=== PATIENT | male | born 1950 | race Caucasian/White ===

== ENCOUNTER 2019-05-04 02:12 | Inpatient (IN) ==
[2019-05-04] MEDS ORDERED: Isovue-370 500 ML BOTTLE IVP ONE (02:27)
[2019-05-04] MEDS ORDERED: Morphine Sulfate 2 MG/ML SYRINGE IVP ONE ×2 (02:28→04:09)
[2019-05-04 02:44] LABS: Basophils % 0.2 %; Eosinophils % 0.1 %; Hematocrit 45.8 % (37.5-50.1); Hemoglobin 15.5 g/dL (12.9-16.9); Immature Granulocytes % 0.4 % (0-4); Lymphocytes # 0.5 K/mcL (0.6-4.6); Lymphocytes % 2.3 %; Mean Corpuscular HGB Conc 33.8 g/dL (31.6-35.5); Mean Corpuscular Hemoglobin 29.9 pg (28.0-33.3); Mean Corpuscular Volume 88.2 fL (83.0-100.0); Mean Platelet Volume 10.7 fL (9.4-12.4); Monocytes # 1.7 K/mcL (0.0-1.3); Monocytes % 7.9 %; Neutrophils # 18.8 K/mcL (1.6-8.9); Platelet Count 251 K/mcL (140-400); Red Blood Count 5.19 M/mcL (4.19-5.50); Red Cell Distribution Width 13.6 % (11.5-14.5); Segmented Neutrophils % 89.1 %
[2019-05-04 02:58] LABS: Bilirubin,Urine Small (Negative); Blood,Urine Large (Negative); Clarity,Urine Cloudy (Clear); Color,Urine Dark Yellow (Yellow); Glucose,Urine (UA) Normal (Normal); Ketones,Urine 15 mg/dL (Negative); Leukocyte Esterase,Urine Small (Negative); Nitrite,Urine Negative (Negative); PH,Urine 7.5 pH Units (5.0-8.0); Protein,Urine 100 mg/dL (Neg-Trace); Specific Gravity,Urine > 1.030 (1.010-1.025); Urobilinogen,Urine Normal (Normal)
[2019-05-04 03:00] LABS: Bacteria,Urine None Seen per hpf (None-Few); Hyaline Casts,Urine None Seen per lpf (None-Few); RBC,Urine TNTC per hpf (0-3); Squamous Epithelial Cell,Urine Many per lpf (None-Few); WBC,Urine 15-30 per hpf (0-3)
[2019-05-04 03:08] LABS: Alanine Aminotransferase 13 Units/L (7-52); Albumin 3.3 g/dL (3.5-5.7); Albumin/Globulin Ratio 1.1 (1.1-2.2); Alkaline Phosphatase 71 Units/L (34-104); Aspartate Amino Transferase 10 Units/L (13-39); BUN/Creatinine Ratio 28 (6-26); Bilirubin,Direct 0.1 mg/dL (0.0-0.2); Bilirubin,Indirect 0.4 mg/dL (0.0-1.0); Bilirubin,Total 0.5 mg/dL (0.3-1.0); Blood Urea Nitrogen 18 mg/dL (8-23); Calcium 8.5 mg/dL (8.6-10.3); Carbon Dioxide 31 mEq/L (23-29); Chloride 92 mEq/L (98-107); Globulin 3.1 g/dL (2.4-3.5); Glucose 162 mg/dL (70-105); Lipase 8 Units/L (11-82); Osmolality,Calculated 271 (280-300); Potassium 4.7 mEq/L (3.5-5.1); Sodium 128 mEq/L (136-145); Total Protein 6.4 g/dL (6.4-8.9); eGFR For African Americans > 60 (> 60); eGFR For Non-African Americans > 60 (> 60)
[2019-05-04] MEDS ORDERED: Piperacillin/Tazobactam 3.375 GM in 0.9 % Sodium Chloride Mini Bag 100 ML IVPB ONE (03:52)
[2019-05-04] MEDS ORDERED: Naloxone 0.4 MG/ML INJ IVP PRN (05:22)
[2019-05-04] MEDS ORDERED: Ringers Solution, Lactated 1,000 ML IVC ONE ×2 (05:27→05:28)
[2019-05-04] MEDS ORDERED: 0.9 % Sodium Chloride 1,000 ML IVC SCH (05:30)
[2019-05-04] MEDS ORDERED: Calcium Gluconate 1gm/50mL 1 GM/50 ML BAG IVPB ONE (05:51)
[2019-05-04 07:17] LABS: INR 1.1; Prothrombin Time 12.8 Seconds (9.4-12.1)
[2019-05-04 07:20] LABS: Estimated Average Glucose 134 mg/dl
[2019-05-04 07:24] LABS: BUN/Creatinine Ratio 22 (6-26); Blood Urea Nitrogen 21 mg/dL (8-23); Calcium 8.7 mg/dL (8.6-10.3); Carbon Dioxide 34 mEq/L (23-29); Chloride 89 mEq/L (98-107); Glucose 161 mg/dL (70-105); Osmolality,Calculated 274 (280-300); Phosphorous 3.7 mg/dL (2.7-4.5); Potassium 4.8 mEq/L (3.5-5.1); Sodium 129 mEq/L (136-145); eGFR For African Americans > 60 (> 60); eGFR For Non-African Americans > 60 (> 60)
[2019-05-04] MEDS ORDERED: *HR* Metoprolol 5 MG/5 ML VIAL IVP PRN (07:36)
[2019-05-04] MEDS ORDERED: MetroNIDAZOLE 500 MG/100 ML 500 MG/100 ML BAG IVPB SCH (08:00)
[2019-05-04] MEDS ORDERED: levoFLOXacin 750 MG/150 ML 750 MG/150 ML BAG IVPB SCH (09:00)
[2019-05-04] MEDS: Piperacillin/Tazobactam 3.375 GM in 0.9 % Sodium Chloride Mini Bag 100 ML IVPB SCH ×3 (09:20→23:29)
[2019-05-04 09:29] LABS: C-Reactive Protein 66 mg/L (Less than 10)
[2019-05-04] MEDS ORDERED: 0.9 % Sodium Chloride 1,000 ML IVC ONE (09:57)
[2019-05-04] MEDS ORDERED: *HR* Heparin 5,000 UNIT/ML VIAL SQ SCH (10:15)
[2019-05-04] MEDS ORDERED: *HR* Metoprolol 5 MG/5 ML VIAL IVP ONE (12:47)
[2019-05-04] MEDS ORDERED: *HR* Heparin 5,000 UNIT/ML VIAL IVP ONE (12:59)
[2019-05-04] MEDS ORDERED: *HR* Heparin 5,000 UNIT/ML VIAL IVP PRN ×2 (12:59)
[2019-05-04] MEDS ORDERED: Heparin 25,000 UNIT/250 ML D5W 25,000 UNIT/250 ML IV.SOLN IVC SCH (13:00)
[2019-05-04] MEDS ORDERED: DilTIAZem 50 MG in 0.9 % Sodium Chloride 40 ML IVC SCH (13:00)
[2019-05-04] MEDS ORDERED: Acetaminophen IV 1,000 MG/100 ML INFUS..BTL IVPB ONE (14:00)
[2019-05-04] MEDS ORDERED: Amiodarone Premix 150 MG/100 ML BAG IVPB ONE (14:05)
[2019-05-04] MEDS ORDERED: Amiodarone Premix 360 MG/200 ML BAG IVC ONE (14:05)
[2019-05-04 15:04] LABS: Hematocrit 42.5 % (37.5-50.1); Mean Corpuscular HGB Conc 32.5 g/dL (31.6-35.5); Mean Corpuscular Hemoglobin 29.1 pg (28.0-33.3); Mean Corpuscular Volume 89.7 fL (83.0-100.0); Mean Platelet Volume 11.1 fL (9.4-12.4); Platelet Count 239 K/mcL (140-400); Red Blood Count 4.74 M/mcL (4.19-5.50); Red Cell Distribution Width 14.1 % (11.5-14.5); White Blood Count 11.1 K/mcL (4.3-11.1)
[2019-05-04 15:06] LABS: Hemoglobin 13.8 g/dL (12.9-16.9)
[2019-05-04 15:16] LABS: INR 1.4; Prothrombin Time 16.1 Seconds (9.4-12.1)
[2019-05-04 15:17] LABS: Heparin anti-factor XA UFH 1.73 IU/mL (0.30-0.70)
[2019-05-04 20:04] LABS: Activated Partial Thrombo Time 196.5 Seconds (26.0-36.0); Heparin anti-factor XA UFH 1.05 IU/mL (0.30-0.70)
[2019-05-04] MEDS: Amiodarone Premix 360 MG/200 ML BAG IVC SCH (23:29)
[2019-05-05 02:27] LABS: Basophils % 0.2 %; Eosinophils % 0.2 %; Hematocrit 40.9 % (37.5-50.1); Hemoglobin 13.3 g/dL (12.9-16.9); Immature Granulocytes % 0.7 % (0-4); Lymphocytes # 0.9 K/mcL (0.6-4.6); Lymphocytes % 11.1 %; Mean Corpuscular HGB Conc 32.5 g/dL (31.6-35.5); Mean Corpuscular Hemoglobin 28.8 pg (28.0-33.3); Mean Corpuscular Volume 88.5 fL (83.0-100.0); Mean Platelet Volume 10.5 fL (9.4-12.4); Monocytes # 1.6 K/mcL (0.0-1.3); Monocytes % 19.7 %; Neutrophils # 5.6 K/mcL (1.6-8.9); Platelet Count 221 K/mcL (140-400); Red Blood Count 4.62 M/mcL (4.19-5.50); Red Cell Distribution Width 14.2 % (11.5-14.5); Segmented Neutrophils % 68.1 %; White Blood Count 8.2 K/mcL (4.3-11.1)
[2019-05-05 02:46] LABS: BUN/Creatinine Ratio 31 (6-26); Blood Urea Nitrogen 26 mg/dL (8-23); Calcium 7.9 mg/dL (8.6-10.3); Carbon Dioxide 32 mEq/L (23-29); Chloride 95 mEq/L (98-107); Glucose 131 mg/dL (70-105); Magnesium 1.9 mg/dL (1.6-2.6); Osmolality,Calculated 283 (280-300); Phosphorous 3.5 mg/dL (2.7-4.5); Potassium 3.8 mEq/L (3.5-5.1); Sodium 133 mEq/L (136-145); eGFR For African Americans > 60 (> 60); eGFR For Non-African Americans > 60 (> 60)
[2019-05-05 02:59] LABS: Platelet Estimate Normal (Normal)
[2019-05-05] MEDS ORDERED: 0.9 % Sodium Chloride 1,000 ML IVC SCH (08:30)
[2019-05-05] MEDS: Piperacillin/Tazobactam 3.375 GM in 0.9 % Sodium Chloride Mini Bag 100 ML IVPB SCH ×3 (08:36→23:05)
[2019-05-05] MEDS ORDERED: Ondansetron 4 MG/2 ML VIAL IVP PRN (09:29)
[2019-05-05] MEDS ORDERED: *HR* Promethazine 25 MG/ML VIAL IVP PRN (09:30)
[2019-05-05] MEDS: Amiodarone Premix 360 MG/200 ML BAG IVC SCH ×2 (10:06→23:07)
[2019-05-05] MEDS ORDERED: *HR* Heparin 5,000 UNIT/ML VIAL IVP PRN ×2 (10:45)
[2019-05-05] MEDS ORDERED: Perflutren Lipid Microsphere 1.3 ML in 0.9 % Sodium Chloride 8.7 ML IVP ONE (12:41)
[2019-05-05] MEDS: Heparin 25,000 UNIT/250 ML D5W 25,000 UNIT/250 ML IV.SOLN IVC SCH (13:35)
[2019-05-05] MEDS: Ipratropium/Albuterol Neb 3 ML IH SCH ×2 (16:08→19:37)
[2019-05-05] MEDS: *HR* Metoprolol 5 MG/5 ML VIAL IVP SCH ×2 (17:20→23:05)
[2019-05-06] MEDS: Ipratropium/Albuterol Neb 3 ML IH SCH ×6 (00:04→22:04)
[2019-05-06 01:32] LABS: Basophils % 0.2 %; Eosinophils # 0.1 K/mcL (0.0-0.6); Eosinophils % 0.9 %; Hematocrit 39.5 % (37.5-50.1); Hemoglobin 12.6 g/dL (12.9-16.9); Immature Granulocytes % 0.5 % (0-4); Lymphocytes # 1.5 K/mcL (0.6-4.6); Lymphocytes % 17.9 %; Mean Corpuscular HGB Conc 31.9 g/dL (31.6-35.5); Mean Corpuscular Volume 90.8 fL (83.0-100.0); Mean Platelet Volume 10.8 fL (9.4-12.4); Monocytes # 1.3 K/mcL (0.0-1.3); Monocytes % 15.1 %; Neutrophils # 5.6 K/mcL (1.6-8.9); Platelet Count 209 K/mcL (140-400); Red Blood Count 4.35 M/mcL (4.19-5.50); Red Cell Distribution Width 14.2 % (11.5-14.5); Segmented Neutrophils % 65.4 %; White Blood Count 8.6 K/mcL (4.3-11.1)
[2019-05-06 01:50] LABS: BUN/Creatinine Ratio 27 (6-26); Blood Urea Nitrogen 21 mg/dL (8-23); Calcium 7.6 mg/dL (8.6-10.3); Carbon Dioxide 35 mEq/L (23-29); Chloride 100 mEq/L (98-107); Glucose 109 mg/dL (70-105); Osmolality,Calculated 290 (280-300); Phosphorous 2.4 mg/dL (2.7-4.5); Potassium 3.2 mEq/L (3.5-5.1); Sodium 138 mEq/L (136-145); eGFR For African Americans > 60 (> 60); eGFR For Non-African Americans > 60 (> 60)
[2019-05-06] MEDS: *HR* Metoprolol 5 MG/5 ML VIAL IVP SCH (05:53)
[2019-05-06] MEDS ORDERED: Potassium Phosphate 44 MEQ in 0.9 % Sodium Chloride 250 ML IVPB ONE (07:25)
[2019-05-06] MEDS ORDERED: Heparin 25,000 UNIT/250 ML D5W 25,000 UNIT/250 ML IV.SOLN IVC SCH (08:08)
[2019-05-06] MEDS ORDERED: Aminoglycoside Consult 1 EACH MC ONE (08:32)
[2019-05-06] MEDS: Heparin 25,000 UNIT/250 ML D5W 25,000 UNIT/250 ML IV.SOLN IVC SCH (08:56)
[2019-05-06] MEDS ORDERED: Ipratropium/Albuterol Neb 3 ML IH PRN (09:16)
[2019-05-06] MEDS: Piperacillin/Tazobactam 3.375 GM in 0.9 % Sodium Chloride Mini Bag 100 ML IVPB SCH (09:55)
[2019-05-06] MEDS: haloperidoL 5 MG TABLET PO SCH ×2 (10:00→20:58)
[2019-05-06] MEDS: Apixaban 5 MG TABLET PO SCH ×2 (10:00→20:57)
[2019-05-06] MEDS: DilTIAZem CD (24hr) 120 MG CAP.ER.24H PO SCH (10:00)
[2019-05-06] MEDS: Aspirin 81 MG TAB.CHEW PO SCH (10:01)
[2019-05-06] MEDS: Metoprolol XL (24 HR) Succ 25 MG TAB.ER.24H PO SCH ×2 (10:01→20:58)
[2019-05-06] MEDS: Budesonide/Formoterol 160/4.5 1 PUFF INH IH SCH ×2 (11:38→22:03)
[2019-05-06] MEDS: OLANZapine 10 MG TAB.RAPDIS PO SCH (20:58)
[2019-05-07] MEDS: Ipratropium/Albuterol Neb 3 ML IH SCH ×4 (03:36→20:51)
[2019-05-07 05:09] LABS: Hematocrit 37.4 % (37.5-50.1); Hemoglobin 12.4 g/dL (12.9-16.9); Mean Corpuscular HGB Conc 33.2 g/dL (31.6-35.5); Mean Corpuscular Hemoglobin 29.5 pg (28.0-33.3); Mean Corpuscular Volume 88.8 fL (83.0-100.0); Mean Platelet Volume 10.4 fL (9.4-12.4); Platelet Count 234 K/mcL (140-400); Red Blood Count 4.21 M/mcL (4.19-5.50); Red Cell Distribution Width 14.1 % (11.5-14.5); White Blood Count 9.4 K/mcL (4.3-11.1)
[2019-05-07 05:29] LABS: BUN/Creatinine Ratio 18 (6-26); Blood Urea Nitrogen 11 mg/dL (8-23); Calcium 7.8 mg/dL (8.6-10.3); Carbon Dioxide 34 mEq/L (23-29); Chloride 95 mEq/L (98-107); Glucose 119 mg/dL (70-105); Osmolality,Calculated 277 (280-300); Phosphorous 2.8 mg/dL (2.7-4.5); Potassium 3.1 mEq/L (3.5-5.1); Sodium 133 mEq/L (136-145); eGFR For African Americans > 60 (> 60); eGFR For Non-African Americans > 60 (> 60)
[2019-05-07] MEDS: haloperidoL 5 MG TABLET PO SCH ×2 (08:52→20:17)
[2019-05-07] MEDS: Apixaban 5 MG TABLET PO SCH ×2 (08:52→20:17)
[2019-05-07] MEDS: DilTIAZem CD (24hr) 120 MG CAP.ER.24H PO SCH (08:53)
[2019-05-07] MEDS: Aspirin 81 MG TAB.CHEW PO SCH (08:53)
[2019-05-07] MEDS: Metoprolol XL (24 HR) Succ 25 MG TAB.ER.24H PO SCH ×2 (08:53→20:17)
[2019-05-07] MEDS: Budesonide/Formoterol 160/4.5 1 PUFF INH IH SCH ×2 (10:45→20:51)
[2019-05-07 14:53] LABS: VBG HCO3 34 mEq/L (21-27); VBG PCO2 64 mmHg (41-51); VBG PH 7.33 pH Units (7.32-7.42); VBG PO2 53 mmHg (25-50)
[2019-05-07] MEDS: Lactulose Oral Soln 20 GM/30 ML UDC PO SCH (18:28)
[2019-05-07] MEDS: OLANZapine 10 MG TAB.RAPDIS PO SCH (20:16)
[2019-05-08] MEDS: Ipratropium/Albuterol Neb 3 ML IH SCH ×4 (03:20→21:24)
[2019-05-08 04:06] LABS: Hematocrit 39.7 % (37.5-50.1); Hemoglobin 12.9 g/dL (12.9-16.9); Mean Corpuscular HGB Conc 32.5 g/dL (31.6-35.5); Mean Corpuscular Hemoglobin 29.8 pg (28.0-33.3); Mean Corpuscular Volume 91.7 fL (83.0-100.0); Mean Platelet Volume 10.2 fL (9.4-12.4); Platelet Count 228 K/mcL (140-400); Red Blood Count 4.33 M/mcL (4.19-5.50); Red Cell Distribution Width 13.9 % (11.5-14.5); White Blood Count 9.4 K/mcL (4.3-11.1)
[2019-05-08 04:16] LABS: VBG HCO3 34 mEq/L (21-27); VBG PCO2 72 mmHg (41-51); VBG PH 7.28 pH Units (7.32-7.42); VBG PO2 33 mmHg (25-50)
[2019-05-08 04:29] LABS: BUN/Creatinine Ratio 7 (6-26); Blood Urea Nitrogen 6 mg/dL (8-23); Calcium 8.3 mg/dL (8.6-10.3); Carbon Dioxide 34 mEq/L (23-29); Chloride 97 mEq/L (98-107); Glucose 98 mg/dL (70-105); Magnesium 2.1 mg/dL (1.6-2.6); Osmolality,Calculated 274 (280-300); Potassium 4.4 mEq/L (3.5-5.1); Sodium 133 mEq/L (136-145); eGFR For African Americans > 60 (> 60); eGFR For Non-African Americans > 60 (> 60)
[2019-05-08 05:27] LABS: ABG Base Excess 8 mEq/L (-2 to 3); ABG HCO3 34 mEq/L (21-27); ABG Oxygen Saturation 93 % (95-98); ABG PCO2 57 mmHg (35-45); ABG PH 7.39 pH Units (7.32-7.45); ABG PO2 68 mmHg (85-104); ABG TCO2 36 mEq/L (20-26); Blood Gas Modality BiLevel
[2019-05-08] MEDS: haloperidoL 5 MG TABLET PO SCH ×2 (09:21→20:44)
[2019-05-08] MEDS: Metoprolol XL (24 HR) Succ 25 MG TAB.ER.24H PO SCH ×2 (09:22→20:44)
[2019-05-08] MEDS: DilTIAZem CD (24hr) 120 MG CAP.ER.24H PO SCH (09:22)
[2019-05-08] MEDS: Apixaban 5 MG TABLET PO SCH ×2 (09:22→20:44)
[2019-05-08] MEDS: Lactulose Oral Soln 20 GM/30 ML UDC PO SCH ×3 (09:22→20:44)
[2019-05-08] MEDS: Aspirin 81 MG TAB.CHEW PO SCH (09:22)
[2019-05-08] MEDS: Budesonide/Formoterol 160/4.5 1 PUFF INH IH SCH ×2 (09:50→21:24)
[2019-05-08] MEDS: OLANZapine 10 MG TAB.RAPDIS PO SCH (20:44)
[2019-05-09 02:41] LABS: BUN/Creatinine Ratio 7 (6-26); Blood Urea Nitrogen 5 mg/dL (8-23); Calcium 8.3 mg/dL (8.6-10.3); Carbon Dioxide 34 mEq/L (23-29); Chloride 100 mEq/L (98-107); Glucose 104 mg/dL (70-105); Osmolality,Calculated 280 (280-300); Potassium 4.1 mEq/L (3.5-5.1); Sodium 136 mEq/L (136-145); eGFR For African Americans > 60 (> 60); eGFR For Non-African Americans > 60 (> 60)
[2019-05-09] MEDS: Ipratropium/Albuterol Neb 3 ML IH SCH ×4 (03:52→21:20)
[2019-05-09 04:34] LABS: ABG Base Excess 7 mEq/L (-2 to 3); ABG HCO3 33 mEq/L (21-27); ABG Oxygen Saturation 89 % (95-98); ABG PCO2 54 mmHg (35-45); ABG PH 7.39 pH Units (7.32-7.45); ABG PO2 58 mmHg (85-104); ABG TCO2 35 mEq/L (20-26)
[2019-05-09] MEDS: DilTIAZem CD (24hr) 120 MG CAP.ER.24H PO SCH (09:12)
[2019-05-09] MEDS: Metoprolol XL (24 HR) Succ 25 MG TAB.ER.24H PO SCH ×2 (09:12→19:59)
[2019-05-09] MEDS: Apixaban 5 MG TABLET PO SCH ×2 (09:12→19:59)
[2019-05-09] MEDS: Aspirin 81 MG TAB.CHEW PO SCH (09:12)
[2019-05-09] MEDS: haloperidoL 5 MG TABLET PO SCH ×2 (09:12→19:59)
[2019-05-09] MEDS: Lactulose Oral Soln 20 GM/30 ML UDC PO SCH ×3 (09:12→19:59)
[2019-05-09] MEDS: Budesonide/Formoterol 160/4.5 1 PUFF INH IH SCH ×2 (10:03→21:20)
[2019-05-09] MEDS: OLANZapine 10 MG TAB.RAPDIS PO SCH (19:59)
[2019-05-10 02:29] LABS: BUN/Creatinine Ratio 7 (6-26); Blood Urea Nitrogen 5 mg/dL (8-23); Calcium 8.2 mg/dL (8.6-10.3); Carbon Dioxide 32 mEq/L (23-29); Chloride 100 mEq/L (98-107); Glucose 110 mg/dL (70-105); Magnesium 1.9 mg/dL (1.6-2.6); Osmolality,Calculated 282 (280-300); Potassium 3.9 mEq/L (3.5-5.1); Sodium 137 mEq/L (136-145); eGFR For African Americans > 60 (> 60); eGFR For Non-African Americans > 60 (> 60)
[2019-05-10] MEDS: Ipratropium/Albuterol Neb 3 ML IH SCH ×2 (03:29→10:55)
[2019-05-10] MEDS: Aspirin 81 MG TAB.CHEW PO SCH (08:45)
[2019-05-10] MEDS: haloperidoL 5 MG TABLET PO SCH (08:45)
[2019-05-10] MEDS: DilTIAZem CD (24hr) 120 MG CAP.ER.24H PO SCH (08:45)
[2019-05-10] MEDS: Apixaban 5 MG TABLET PO SCH (08:45)
[2019-05-10] MEDS: Metoprolol XL (24 HR) Succ 25 MG TAB.ER.24H PO SCH (08:46)
[2019-05-10] MEDS: Lactulose Oral Soln 20 GM/30 ML UDC PO SCH (08:49)
[2019-05-10 10:55] VITALS: BP 103/70
[2019-05-10] MEDS: Budesonide/Formoterol 160/4.5 1 PUFF INH IH SCH (10:55)
== END 2019-05-10 13:11 | DRG 871 ==
LOC: EMEROOARM 02:12 → 2ANU 02:12 → SUATTDRO 12:26 → 2NNU 16:53 → 3ANU 05-07 11:18
PROVIDERS: ADMIT Student in an Organized Health Care Education/Training Program; ATTEND Internal Medicine

== ENCOUNTER 2020-04-11 20:18 | Inpatient (IN) ==
[2020-04-11] MEDS ORDERED: Ipratropium/Albuterol Neb 3 ML IH ONE (20:33)
[2020-04-11] MEDS ORDERED: Furosemide 40 MG/4 ML VIAL IVP ONE (20:33)
[2020-04-11] MEDS ORDERED: methylPREDNISolone 125 MG/2 ML VIAL IVP ONE (20:33)
[2020-04-11] MEDS ORDERED: Isovue-370 500 ML BOTTLE IVP ONE (20:53)
[2020-04-11 20:56] LABS: Basophils % 0.4 %; Eosinophils # 0.2 K/mcL (0.0-0.6); Eosinophils % 2.4 %; Hematocrit 33.1 % (37.5-50.1); Hemoglobin 9.7 g/dL (12.9-16.9); Immature Granulocytes % 0.3 % (0-4); Lymphocytes # 0.9 K/mcL (0.6-4.6); Lymphocytes % 9.3 %; Mean Corpuscular HGB Conc 29.3 g/dL (31.6-35.5); Mean Corpuscular Hemoglobin 21.8 pg (28.0-33.3); Mean Corpuscular Volume 74.5 fL (83.0-100.0); Mean Platelet Volume 9.9 fL (9.4-12.4); Monocytes # 1.6 K/mcL (0.0-1.3); Monocytes % 16.8 %; Neutrophils # 6.8 K/mcL (1.6-8.9); Platelet Count 297 K/mcL (140-400); Red Blood Count 4.44 M/mcL (4.19-5.50); Red Cell Distribution Width 16.3 % (11.5-14.5); Segmented Neutrophils % 70.8 %; White Blood Count 9.6 K/mcL (4.3-11.1)
[2020-04-11 21:11] LABS: BUN/Creatinine Ratio 20 (6-26); Blood Urea Nitrogen 16 mg/dL (8-23); Calcium 8.9 mg/dL (8.6-10.3); Carbon Dioxide 39 mEq/L (23-29); Chloride 85 mEq/L (98-107); Glucose 117 mg/dL (70-105); Osmolality,Calculated 272 (280-300); Potassium 3.5 mEq/L (3.5-5.1); Sodium 130 mEq/L (136-145); eGFR For African Americans > 60 (> 60); eGFR For Non-African Americans > 60 (> 60)
[2020-04-11 21:12] LABS: Troponin I < 0.03 ng/mL (< 0.04)
[2020-04-11 22:59] LABS: Adenovirus Not Detected (Not Detect); Bordetella Pertussis Not Detected (Not Detect); Chlamydophila pneumoniae Not Detected (Not Detect); Coronavirus 229E Not Detected (Not Detect); Coronavirus HKU1 Not Detected (Not Detect); Coronavirus NL63 Not Detected (Not Detect); Coronavirus OC43 Not Detected (Not Detect); Human Metapneumovirus Not Detected (Not Detect); Human Rhinovirus/Enterovirus Not Detected (Not Detect); Influenza A Subtype 2009 H1 Not Detected (Not Detect); Influenza B Not Detected (Not Detect); Mycoplasma pneumoniae Not Detected (Not Detect); Parainfluenza Virus 1 Not Detected (Not Detect); Parainfluenza Virus 2 Not Detected (Not Detect); Parainfluenza Virus 3 Not Detected (Not Detect); Parainfluenza Virus 4 Not Detected (Not Detect); Respiratory Syncytial Virus Not Detected (Not Detect); SARS-CoV-2 Not Detected (Not Detect)
[2020-04-11] MEDS ORDERED: cefTRIAXone 1,000 MG in Water for inj. (sterile) 10 ML IVP ONE (23:00)
[2020-04-11] MEDS ORDERED: Azithromycin 500 MG in 0.9 % Sodium Chloride 250 ML IVPB ONE (23:00)
[2020-04-11] MEDS ORDERED: 0.9 % Sodium Chloride 500 ML IVC ONE (23:49)
[2020-04-12] MEDS ORDERED: Naloxone 0.4 MG/ML INJ IVP PRN (01:27)
[2020-04-12] MEDS ORDERED: Ondansetron 4 MG/2 ML VIAL IVP PRN (01:27)
[2020-04-12] MEDS ORDERED: *HR* Metoprolol 5 MG/5 ML VIAL IVP ONE (01:38)
[2020-04-12 01:47] LABS: ABG Base Excess 12 mEq/L (-2 to 3); ABG HCO3 39 mEq/L (21-27); ABG Oxygen Saturation 97 % (95-98); ABG PCO2 61 mmHg (35-45); ABG PH 7.41 pH Units (7.32-7.45); ABG PO2 90 mmHg (85-104); ABG TCO2 41 mEq/L (20-26); Blood Gas Modality AVAPS; Blood Gas VT 550 cc
[2020-04-12 03:04] LABS: Hematocrit 33.2 % (37.5-50.1); Hemoglobin 9.9 g/dL (12.9-16.9); Mean Corpuscular HGB Conc 29.8 g/dL (31.6-35.5); Mean Corpuscular Volume 73.9 fL (83.0-100.0); Mean Platelet Volume 9.5 fL (9.4-12.4); Platelet Count 277 K/mcL (140-400); Red Blood Count 4.49 M/mcL (4.19-5.50); Red Cell Distribution Width 16.1 % (11.5-14.5); White Blood Count 9.5 K/mcL (4.3-11.1)
[2020-04-12 03:09] LABS: VBG HCO3 40 mEq/L (21-27); VBG PCO2 70 mmHg (41-51); VBG PH 7.36 pH Units (7.32-7.42); VBG PO2 99 mmHg (25-50)
[2020-04-12 03:28] LABS: BUN/Creatinine Ratio 18 (6-26); Blood Urea Nitrogen 14 mg/dL (8-23); Calcium 8.4 mg/dL (8.6-10.3); Carbon Dioxide 41 mEq/L (23-29); Chloride 87 mEq/L (98-107); Glucose 172 mg/dL (70-105); Osmolality,Calculated 281 (280-300); Potassium 3.8 mEq/L (3.5-5.1); Sodium 133 mEq/L (136-145); eGFR For African Americans > 60 (> 60); eGFR For Non-African Americans > 60 (> 60)
[2020-04-12] MEDS: Ipratropium/Albuterol Neb 3 ML IH SCH ×5 (07:18→23:34)
[2020-04-12] MEDS ORDERED: cefTRIAXone 2,000 MG in Water for inj. (sterile) 20 ML IVP SCH (08:00)
[2020-04-12] MEDS ORDERED: Furosemide 40 MG/4 ML VIAL IVP SCH ×2 (08:00→09:15)
[2020-04-12] MEDS ORDERED: DilTIAZem CD (24hr) 180 MG CAP.ER.24H PO SCH (09:15)
[2020-04-12] MEDS: MethylPREDNISolone 40 MG/ML VIAL IVP SCH ×4 (09:19→23:29)
[2020-04-12] MEDS: Azithromycin 500 MG in 0.9 % Sodium Chloride 250 ML IVPB SCH (09:20)
[2020-04-12] MEDS: Apixaban 5 MG TABLET PO SCH ×2 (11:04→20:09)
[2020-04-12] MEDS: Finasteride 5 MG TABLET PO SCH (11:05)
[2020-04-12 12:38] LABS: VBG HCO3 43 mEq/L (21-27); VBG PCO2 79 mmHg (41-51); VBG PH 7.34 pH Units (7.32-7.42); VBG PO2 67 mmHg (25-50)
[2020-04-12] MEDS ORDERED: Amiodarone Premix 150 MG/100 ML BAG IVPB ONE (14:10)
[2020-04-12] MEDS ORDERED: Amiodarone Premix 360 MG/200 ML BAG IVC ONE (15:00)
[2020-04-12 17:35] LABS: VBG HCO3 39 mEq/L (21-27); VBG PCO2 57 mmHg (41-51); VBG PH 7.44 pH Units (7.32-7.42); VBG PO2 182 mmHg (25-50)
[2020-04-12 19:30] LABS: VBG HCO3 40 mEq/L (21-27); VBG PCO2 45 mmHg (41-51); VBG PH 7.56 pH Units (7.32-7.42); VBG PO2 218 mmHg (25-50)
[2020-04-12] MEDS: OLANZapine 5 MG TAB.RAPDIS PO SCH (20:09)
[2020-04-12] MEDS: Amiodarone Premix 360 MG/200 ML BAG IVC SCH (20:13)
[2020-04-12] MEDS ORDERED: cefTRIAXone 1,000 MG in 0.9 % Sodium Chloride Mini Bag 100 ML IVPB SCH (21:00)
[2020-04-12] MEDS: *HR* Metoprolol 5 MG/5 ML VIAL IVP PRN (23:28)
[2020-04-13 02:25] LABS: Hemoglobin 9.8 g/dL (12.9-16.9); Mean Corpuscular HGB Conc 29.7 g/dL (31.6-35.5); Mean Corpuscular Hemoglobin 22.2 pg (28.0-33.3); Mean Corpuscular Volume 74.7 fL (83.0-100.0); Mean Platelet Volume 10.4 fL (9.4-12.4); Platelet Count 313 K/mcL (140-400); Red Blood Count 4.42 M/mcL (4.19-5.50); Red Cell Distribution Width 16.1 % (11.5-14.5); White Blood Count 10.1 K/mcL (4.3-11.1)
[2020-04-13 02:34] LABS: BUN/Creatinine Ratio 25 (6-26); Blood Urea Nitrogen 21 mg/dL (8-23); Calcium 8.5 mg/dL (8.6-10.3); Carbon Dioxide 37 mEq/L (23-29); Chloride 88 mEq/L (98-107); Glucose 165 mg/dL (70-105); Osmolality,Calculated 285 (280-300); Potassium 3.6 mEq/L (3.5-5.1); Sodium 134 mEq/L (136-145); eGFR For African Americans > 60 (> 60); eGFR For Non-African Americans > 60 (> 60)
[2020-04-13] MEDS: Ipratropium/Albuterol Neb 3 ML IH SCH ×6 (03:52→23:21)
[2020-04-13] MEDS: MethylPREDNISolone 40 MG/ML VIAL IVP SCH ×3 (05:43→18:18)
[2020-04-13] MEDS: Furosemide 40 MG/4 ML VIAL IVP SCH ×2 (08:04→20:14)
[2020-04-13] MEDS: Finasteride 5 MG TABLET PO SCH (08:04)
[2020-04-13] MEDS: Apixaban 5 MG TABLET PO SCH ×2 (08:04→20:14)
[2020-04-13] MEDS: Azithromycin 500 MG in 0.9 % Sodium Chloride 250 ML IVPB SCH (08:04)
[2020-04-13] MEDS: Amiodarone Premix 360 MG/200 ML BAG IVC SCH (08:52)
[2020-04-13] MEDS: DilTIAZem CD (24hr) 180 MG CAP.ER.24H PO SCH (11:09)
[2020-04-13] MEDS: *HR* Metoprolol 5 MG/5 ML VIAL IVP PRN (13:37)
[2020-04-13] MEDS: Melatonin 3 MG TABLET PO SCH (20:14)
[2020-04-13] MEDS: OLANZapine 5 MG TAB.RAPDIS PO SCH (20:14)
[2020-04-14] MEDS: MethylPREDNISolone 40 MG/ML VIAL IVP SCH ×5 (01:00→23:53)
[2020-04-14] MEDS: Ipratropium/Albuterol Neb 3 ML IH SCH ×6 (03:38→23:18)
[2020-04-14 03:47] LABS: Hematocrit 32.3 % (37.5-50.1); Hemoglobin 9.8 g/dL (12.9-16.9); Mean Corpuscular HGB Conc 30.3 g/dL (31.6-35.5); Mean Corpuscular Hemoglobin 22.2 pg (28.0-33.3); Mean Corpuscular Volume 73.2 fL (83.0-100.0); Mean Platelet Volume 10.2 fL (9.4-12.4); Platelet Count 330 K/mcL (140-400); Red Blood Count 4.41 M/mcL (4.19-5.50); Red Cell Distribution Width 16.5 % (11.5-14.5)
[2020-04-14 04:14] LABS: BUN/Creatinine Ratio 37 (6-26); Blood Urea Nitrogen 31 mg/dL (8-23); Calcium 8.5 mg/dL (8.6-10.3); Carbon Dioxide 41 mEq/L (23-29); Chloride 89 mEq/L (98-107); Glucose 154 mg/dL (70-105); Osmolality,Calculated 294 (280-300); Potassium 3.1 mEq/L (3.5-5.1); Sodium 137 mEq/L (136-145); eGFR For African Americans > 60 (> 60); eGFR For Non-African Americans > 60 (> 60)
[2020-04-14] MEDS: Apixaban 5 MG TABLET PO SCH ×2 (08:48→21:26)
[2020-04-14] MEDS: BuPROPion XL (24 HR) 150 MG TABLET PO SCH (08:49)
[2020-04-14] MEDS: Finasteride 5 MG TABLET PO SCH (08:49)
[2020-04-14] MEDS: DilTIAZem CD (24hr) 180 MG CAP.ER.24H PO SCH (08:49)
[2020-04-14] MEDS: Azithromycin 500 MG in 0.9 % Sodium Chloride 250 ML IVPB SCH (08:50)
[2020-04-14] MEDS ORDERED: DilTIAZem CD (24hr) 120 MG CAP.ER.24H PO ONE (09:28)
[2020-04-14] MEDS ORDERED: Acetaminophen 325 MG TABLET PO PRN (12:36)
[2020-04-14] MEDS ORDERED: Furosemide 40 MG/4 ML VIAL IVP SCH (15:00)
[2020-04-14] MEDS: OLANZapine 5 MG TAB.RAPDIS PO SCH (21:26)
[2020-04-14] MEDS: Melatonin 3 MG TABLET PO SCH (21:26)
[2020-04-15] MEDS: Ipratropium/Albuterol Neb 3 ML IH SCH ×5 (03:45→19:33)
[2020-04-15] MEDS: MethylPREDNISolone 40 MG/ML VIAL IVP SCH ×3 (06:04→18:03)
[2020-04-15] MEDS: Finasteride 5 MG TABLET PO SCH (08:48)
[2020-04-15] MEDS: Azithromycin 500 MG in 0.9 % Sodium Chloride 250 ML IVPB SCH (08:49)
[2020-04-15] MEDS: BuPROPion XL (24 HR) 150 MG TABLET PO SCH (08:49)
[2020-04-15] MEDS: Apixaban 5 MG TABLET PO SCH ×2 (08:49→20:29)
[2020-04-15] MEDS: DilTIAZem CD (24hr) 240 MG CAP.ER.24H PO SCH (08:49)
[2020-04-15 09:23] LABS: Bilirubin,Urine Negative (Negative); Blood,Urine Small (Negative); Clarity,Urine Clear (Clear); Color,Urine Light-Yellow (Yellow); Glucose,Urine (UA) Normal (Normal); Ketones,Urine Negative (Negative); Leukocyte Esterase,Urine Moderate (Negative); Mucus,Urine Few per lpf (None-Few); Nitrite,Urine Negative (Negative); PH,Urine 6.5 pH Units (5.0-8.0); Protein,Urine 30 mg/dL (Neg-Trace); RBC,Urine 50-100 per hpf (0-3); Specific Gravity,Urine 1.028 (1.010-1.025); Urobilinogen,Urine Normal (Normal)
[2020-04-15 14:19] LABS: Hematocrit 36.8 % (37.5-50.1); Mean Corpuscular HGB Conc 29.9 g/dL (31.6-35.5); Mean Corpuscular Volume 73.6 fL (83.0-100.0); Mean Platelet Volume 9.7 fL (9.4-12.4); Platelet Count 315 K/mcL (140-400); Red Cell Distribution Width 16.7 % (11.5-14.5); White Blood Count 12.1 K/mcL (4.3-11.1)
[2020-04-15 14:26] LABS: VBG HCO3 40 mEq/L (21-27); VBG PCO2 71 mmHg (41-51); VBG PH 7.36 pH Units (7.32-7.42); VBG PO2 40 mmHg (25-50)
[2020-04-15 14:44] LABS: BUN/Creatinine Ratio 40 (6-26); Blood Urea Nitrogen 31 mg/dL (8-23); Calcium 8.8 mg/dL (8.6-10.3); Carbon Dioxide 40 mEq/L (23-29); Chloride 95 mEq/L (98-107); Glucose 189 mg/dL (70-105); Magnesium 2.3 mg/dL (1.6-2.6); Osmolality,Calculated 300 (280-300); Sodium 139 mEq/L (136-145); eGFR For African Americans > 60 (> 60); eGFR For Non-African Americans > 60 (> 60)
[2020-04-15] MEDS ORDERED: Furosemide 40 MG/4 ML VIAL IVP ONE (15:12)
[2020-04-15] MEDS: OLANZapine 5 MG TAB.RAPDIS PO SCH (20:29)
[2020-04-15] MEDS: Melatonin 3 MG TABLET PO SCH (20:29)
[2020-04-16] MEDS: MethylPREDNISolone 40 MG/ML VIAL IVP SCH ×5 (00:03→23:45)
[2020-04-16] MEDS: Ipratropium/Albuterol Neb 3 ML IH SCH ×6 (00:03→20:01)
[2020-04-16 02:11] LABS: Hematocrit 36.7 % (37.5-50.1); Hemoglobin 10.8 g/dL (12.9-16.9); Mean Corpuscular HGB Conc 29.4 g/dL (31.6-35.5); Mean Corpuscular Hemoglobin 21.9 pg (28.0-33.3); Mean Corpuscular Volume 74.4 fL (83.0-100.0); Mean Platelet Volume 10.1 fL (9.4-12.4); Platelet Count 302 K/mcL (140-400); Red Blood Count 4.93 M/mcL (4.19-5.50); Red Cell Distribution Width 16.6 % (11.5-14.5); White Blood Count 11.9 K/mcL (4.3-11.1)
[2020-04-16 02:37] LABS: BUN/Creatinine Ratio 41 (6-26); Blood Urea Nitrogen 32 mg/dL (8-23); Calcium 8.6 mg/dL (8.6-10.3); Carbon Dioxide 41 mEq/L (23-29); Chloride 93 mEq/L (98-107); Glucose 183 mg/dL (70-105); Magnesium 2.1 mg/dL (1.6-2.6); Osmolality,Calculated 300 (280-300); Potassium 3.7 mEq/L (3.5-5.1); Sodium 139 mEq/L (136-145); eGFR For African Americans > 60 (> 60); eGFR For Non-African Americans > 60 (> 60)
[2020-04-16 06:37] LABS: ABG Base Excess 13 mEq/L (-2 to 3); ABG HCO3 40 mEq/L (21-27); ABG Oxygen Saturation 88 % (95-98); ABG PCO2 63 mmHg (35-45); ABG PH 7.41 pH Units (7.32-7.45); ABG PO2 56 mmHg (85-104); ABG TCO2 42 mEq/L (20-26)
[2020-04-16] MEDS: BuPROPion XL (24 HR) 150 MG TABLET PO SCH (07:47)
[2020-04-16] MEDS: Furosemide 40 MG/4 ML VIAL IVP SCH ×2 (07:48→19:39)
[2020-04-16] MEDS: Azithromycin 500 MG in 0.9 % Sodium Chloride 250 ML IVPB SCH (07:48)
[2020-04-16] MEDS: DilTIAZem CD (24hr) 240 MG CAP.ER.24H PO SCH (07:48)
[2020-04-16] MEDS: Finasteride 5 MG TABLET PO SCH (07:48)
[2020-04-16] MEDS: Apixaban 5 MG TABLET PO SCH ×2 (07:48→19:38)
[2020-04-16] MEDS: Melatonin 3 MG TABLET PO SCH (19:39)
[2020-04-16] MEDS: OLANZapine 5 MG TAB.RAPDIS PO SCH (19:39)
[2020-04-17] MEDS: Ipratropium/Albuterol Neb 3 ML IH SCH ×4 (00:15→11:00)
[2020-04-17] MEDS: MethylPREDNISolone 40 MG/ML VIAL IVP SCH (06:25)
[2020-04-17] MEDS: Finasteride 5 MG TABLET PO SCH (08:48)
[2020-04-17] MEDS: DilTIAZem CD (24hr) 240 MG CAP.ER.24H PO SCH (08:48)
[2020-04-17] MEDS: Apixaban 5 MG TABLET PO SCH ×2 (08:49→19:59)
[2020-04-17] MEDS: BuPROPion XL (24 HR) 150 MG TABLET PO SCH (08:49)
[2020-04-17] MEDS: Azithromycin 500 MG in 0.9 % Sodium Chloride 250 ML IVPB SCH (08:49)
[2020-04-17] MEDS: Furosemide 40 MG/4 ML VIAL IVP SCH (08:49)
[2020-04-17 09:32] LABS: BUN/Creatinine Ratio 39 (6-26); Blood Urea Nitrogen 33 mg/dL (8-23); Calcium 8.6 mg/dL (8.6-10.3); Carbon Dioxide 42 mEq/L (23-29); Chloride 94 mEq/L (98-107); Glucose 185 mg/dL (70-105); Magnesium 2.3 mg/dL (1.6-2.6); Osmolality,Calculated 298 (280-300); Potassium 4.2 mEq/L (3.5-5.1); Sodium 138 mEq/L (136-145); eGFR For African Americans > 60 (> 60); eGFR For Non-African Americans > 60 (> 60)
[2020-04-17] MEDS ORDERED: DilTIAZem SR (12hr) 60 MG CAP.ER.12H PO ONE (13:46)
[2020-04-17] MEDS: Budesonide/Formoterol 160/4.5 1 PUFF INH IH SCH ×2 (14:44→22:21)
[2020-04-17] MEDS: Furosemide 40 MG TABLET PO SCH (16:59)
[2020-04-17] MEDS: OLANZapine 5 MG TAB.RAPDIS PO SCH (19:58)
[2020-04-17] MEDS: Melatonin 3 MG TABLET PO SCH (19:59)
[2020-04-18 01:21] LABS: Hematocrit 36.9 % (37.5-50.1); Hemoglobin 10.8 g/dL (12.9-16.9); Mean Corpuscular HGB Conc 29.3 g/dL (31.6-35.5); Mean Corpuscular Hemoglobin 21.8 pg (28.0-33.3); Mean Corpuscular Volume 74.5 fL (83.0-100.0); Platelet Count 281 K/mcL (140-400); Red Blood Count 4.95 M/mcL (4.19-5.50); Red Cell Distribution Width 16.6 % (11.5-14.5); White Blood Count 15.3 K/mcL (4.3-11.1)
[2020-04-18 02:53] LABS: BUN/Creatinine Ratio 38 (6-26); Blood Urea Nitrogen 36 mg/dL (8-23); Calcium 8.1 mg/dL (8.6-10.3); Carbon Dioxide 41 mEq/L (23-29); Chloride 93 mEq/L (98-107); Glucose 162 mg/dL (70-105); Magnesium 2.9 mg/dL (1.6-2.6); Osmolality,Calculated 300 (280-300); Potassium 4.3 mEq/L (3.5-5.1); Sodium 139 mEq/L (136-145); eGFR For African Americans > 60 (> 60); eGFR For Non-African Americans > 60 (> 60)
[2020-04-18 07:15] VITALS: BP 112/69
[2020-04-18] MEDS: Budesonide/Formoterol 160/4.5 1 PUFF INH IH SCH (07:49)
[2020-04-18] MEDS: Apixaban 5 MG TABLET PO SCH (08:29)
[2020-04-18] MEDS: Finasteride 5 MG TABLET PO SCH (08:30)
[2020-04-18] MEDS: BuPROPion XL (24 HR) 150 MG TABLET PO SCH (08:30)
[2020-04-18] MEDS: Furosemide 40 MG TABLET PO SCH (08:30)
[2020-04-18] MEDS ORDERED: predniSONE 20 MG TABLET PO SCH (09:00)
[2020-04-18] MEDS ORDERED: DilTIAZem CD (24hr) 180 MG CAP.ER.24H PO SCH (09:00)
[2020-04-18 12:42] LABS: Adenovirus Not Detected (Not Detect); Bordetella Pertussis Not Detected (Not Detect); Chlamydophila pneumoniae Not Detected (Not Detect); Coronavirus 229E Not Detected (Not Detect); Coronavirus HKU1 Not Detected (Not Detect); Coronavirus NL63 Not Detected (Not Detect); Coronavirus OC43 Not Detected (Not Detect); Human Metapneumovirus Not Detected (Not Detect); Human Rhinovirus/Enterovirus Not Detected (Not Detect); Influenza A Subtype 2009 H1 Not Detected (Not Detect); Influenza B Not Detected (Not Detect); Mycoplasma pneumoniae Not Detected (Not Detect); Parainfluenza Virus 1 Not Detected (Not Detect); Parainfluenza Virus 2 Not Detected (Not Detect); Parainfluenza Virus 3 Not Detected (Not Detect); Parainfluenza Virus 4 Not Detected (Not Detect); Respiratory Syncytial Virus Not Detected (Not Detect); SARS-CoV-2 Not Detected (Not Detect)
== END 2020-04-18 14:32 | DRG 291 ==
LOC: EMEROOARM 20:18 → 2ANU 20:18 → 2NNU 04-12 02:36 → SUATTDRO 04-12 15:18 → 2NNU 04-16 08:22
PROVIDERS: ADMIT Student in an Organized Health Care Education/Training Program; ATTEND Internal Medicine

== ENCOUNTER 2020-04-19 16:00 | Observation (INO) ==
[2020-04-19] MEDS ORDERED: 0.9 % Sodium Chloride 500 ML IVC ONE (16:39)
[2020-04-19 16:59] LABS: Basophils % 0.1 %; Eosinophils # 0.3 K/mcL (0.0-0.6); Eosinophils % 1.6 %; Hematocrit 37.2 % (37.5-50.1); Immature Granulocytes % 0.7 % (0-4); Lymphocytes # 1.1 K/mcL (0.6-4.6); Lymphocytes % 5.9 %; Mean Corpuscular HGB Conc 29.6 g/dL (31.6-35.5); Mean Corpuscular Hemoglobin 21.9 pg (28.0-33.3); Mean Corpuscular Volume 74.1 fL (83.0-100.0); Monocytes # 1.8 K/mcL (0.0-1.3); Monocytes % 9.7 %; Neutrophils # 15.5 K/mcL (1.6-8.9); Platelet Count 275 K/mcL (140-400); Red Blood Count 5.02 M/mcL (4.19-5.50); Red Cell Distribution Width 17.1 % (11.5-14.5); White Blood Count 18.9 K/mcL (4.3-11.1)
[2020-04-19 17:07] LABS: INR 1.1; Prothrombin Time 13.1 Seconds (9.4-12.1)
[2020-04-19 17:24] LABS: Troponin I < 0.03 ng/mL (< 0.04)
[2020-04-19] MEDS ORDERED: Dexamethasone 4 MG/ML VIAL IVP ONE (17:29)
[2020-04-19] MEDS ORDERED: cefTRIAXone 1,000 MG in Water for inj. (sterile) 10 ML IVP ONE (17:29)
[2020-04-19 17:30] LABS: Bilirubin,Urine Negative (Negative); Blood,Urine Negative (Negative); Clarity,Urine Clear (Clear); Color,Urine Light-Yellow (Yellow); Glucose,Urine (UA) Normal (Normal); Ketones,Urine Negative (Negative); Leukocyte Esterase,Urine Negative (Negative); Nitrite,Urine Negative (Negative); PH,Urine 7.5 pH Units (5.0-8.0); Protein,Urine Negative (Neg-Trace); Specific Gravity,Urine 1.016 (1.010-1.025); Urobilinogen,Urine Normal (Normal)
[2020-04-19] MEDS ORDERED: Azithromycin 250 MG TABLET PO ONE (17:30)
[2020-04-19 17:39] LABS: Alanine Aminotransferase 29 Units/L (7-52); Albumin 3.1 g/dL (3.5-5.7); Albumin/Globulin Ratio 1.3 (1.1-2.2); Alkaline Phosphatase 68 Units/L (34-104); Aspartate Amino Transferase 10 Units/L (13-39); BUN/Creatinine Ratio 37 (6-26); Bilirubin,Direct 0.1 mg/dL (0.0-0.2); Bilirubin,Indirect 0.2 mg/dL (0.0-1.0); Bilirubin,Total 0.3 mg/dL (0.3-1.0); Blood Urea Nitrogen 31 mg/dL (8-23); Calcium 8.3 mg/dL (8.6-10.3); Carbon Dioxide 40 mEq/L (23-29); Chloride 95 mEq/L (98-107); Globulin 2.4 g/dL (2.4-3.5); Glucose 165 mg/dL (70-105); Osmolality,Calculated 300 (280-300); Potassium 3.8 mEq/L (3.5-5.1); Sodium 140 mEq/L (136-145); Total Protein 5.5 g/dL (6.4-8.9); eGFR For African Americans > 60 (> 60); eGFR For Non-African Americans > 60 (> 60)
[2020-04-19 18:52] LABS: Adenovirus Not Detected (Not Detect); Bordetella Pertussis Not Detected (Not Detect); Chlamydophila pneumoniae Not Detected (Not Detect); Coronavirus 229E Not Detected (Not Detect); Coronavirus HKU1 Not Detected (Not Detect); Coronavirus NL63 Not Detected (Not Detect); Coronavirus OC43 Not Detected (Not Detect); Human Metapneumovirus Not Detected (Not Detect); Human Rhinovirus/Enterovirus Not Detected (Not Detect); Influenza A Subtype 2009 H1 Not Detected (Not Detect); Influenza B Not Detected (Not Detect); Mycoplasma pneumoniae Not Detected (Not Detect); Parainfluenza Virus 1 Not Detected (Not Detect); Parainfluenza Virus 2 Not Detected (Not Detect); Parainfluenza Virus 3 Not Detected (Not Detect); Parainfluenza Virus 4 Not Detected (Not Detect); Respiratory Syncytial Virus Not Detected (Not Detect); SARS-CoV-2 Not Detected (Not Detect)
[2020-04-19] MEDS ORDERED: Acetaminophen 325 MG TABLET PO PRN (19:47)
[2020-04-19] MEDS ORDERED: Naloxone 0.4 MG/ML INJ IVP PRN (19:47)
[2020-04-19] MEDS ORDERED: Ipratropium/Albuterol Neb 3 ML IH PRN (19:52)
[2020-04-19] MEDS ORDERED: Bisacodyl 10 MG RECTAL SUPPOSITORY RC PRN (19:52)
[2020-04-19] MEDS: Ipratropium/Albuterol Neb 3 ML IH SCH ×2 (20:40→20:58)
[2020-04-19] MEDS: Budesonide/Formoterol 160/4.5 1 PUFF INH IH SCH (20:56)
[2020-04-19] MEDS: Melatonin 3 MG TABLET PO SCH (22:27)
[2020-04-19] MEDS: Apixaban 5 MG TABLET PO SCH (22:27)
[2020-04-19] MEDS: OLANZapine 10 MG TAB.RAPDIS PO SCH (22:28)
[2020-04-19] MEDS: Lactulose Oral Soln 20 GM/30 ML UDC PO SCH (22:29)
[2020-04-19] MEDS: Torsemide 20 MG TABLET PO SCH (22:34)
[2020-04-20] MEDS: Ipratropium/Albuterol Neb 3 ML IH SCH ×6 (00:28→20:25)
[2020-04-20 05:28] LABS: Basophils % 0.1 %; Hemoglobin 10.8 g/dL (12.9-16.9); Immature Granulocytes % 0.7 % (0-4); Lymphocytes # 0.5 K/mcL (0.6-4.6); Lymphocytes % 2.9 %; Mean Corpuscular HGB Conc 29.2 g/dL (31.6-35.5); Mean Corpuscular Hemoglobin 21.6 pg (28.0-33.3); Mean Corpuscular Volume 74.1 fL (83.0-100.0); Mean Platelet Volume 10.2 fL (9.4-12.4); Monocytes # 0.2 K/mcL (0.0-1.3); Monocytes % 1.3 %; Neutrophils # 15.9 K/mcL (1.6-8.9); Platelet Count 255 K/mcL (140-400); Red Blood Count 4.99 M/mcL (4.19-5.50); Red Cell Distribution Width 17.2 % (11.5-14.5); White Blood Count 16.7 K/mcL (4.3-11.1)
[2020-04-20 05:46] LABS: Alanine Aminotransferase 26 Units/L (7-52); Albumin 3.2 g/dL (3.5-5.7); Albumin/Globulin Ratio 1.3 (1.1-2.2); Alkaline Phosphatase 72 Units/L (34-104); Aspartate Amino Transferase 9 Units/L (13-39); BUN/Creatinine Ratio 38 (6-26); Bilirubin,Total 0.3 mg/dL (0.3-1.0); Blood Urea Nitrogen 29 mg/dL (8-23); Calcium 8.4 mg/dL (8.6-10.3); Carbon Dioxide 36 mEq/L (23-29); Chloride 97 mEq/L (98-107); Globulin 2.4 g/dL (2.4-3.5); Glucose 193 mg/dL (70-105); Osmolality,Calculated 299 (280-300); Potassium 4.4 mEq/L (3.5-5.1); Sodium 139 mEq/L (136-145); Total Protein 5.6 g/dL (6.4-8.9); eGFR For African Americans > 60 (> 60); eGFR For Non-African Americans > 60 (> 60)
[2020-04-20] MEDS: Budesonide/Formoterol 160/4.5 1 PUFF INH IH SCH ×2 (07:39→20:25)
[2020-04-20] MEDS ORDERED: NON-FORMULARY MEDICATION 1 EACH EACH (Tiotropium Bromide [Spiriva Handihaler] 18 MCG Cap.W IH SCH (09:00)
[2020-04-20] MEDS: predniSONE 20 MG TABLET PO SCH (09:24)
[2020-04-20] MEDS: Cholecalciferol (D-3) 1,000 UNIT (25MCG) TABLET PO SCH (09:24)
[2020-04-20] MEDS: Apixaban 5 MG TABLET PO SCH ×2 (09:25→20:20)
[2020-04-20] MEDS: Lactulose Oral Soln 20 GM/30 ML UDC PO SCH ×3 (09:25→20:21)
[2020-04-20] MEDS: BuPROPion XL (24 HR) 150 MG TABLET PO SCH (09:25)
[2020-04-20] MEDS: polyethylene glycoL 3350 17 GM POWD.PACK PO SCH (09:25)
[2020-04-20] MEDS: DilTIAZem CD (24hr) 180 MG CAP.ER.24H PO SCH (09:25)
[2020-04-20] MEDS: Torsemide 20 MG TABLET PO SCH ×2 (09:33→17:39)
[2020-04-20] MEDS ORDERED: E-Z-PAQUE (BARIUM SULF) SUSP 1 BOTTLE PO ONE (14:48)
[2020-04-20] MEDS ORDERED: E-Z-HD (BARIUM SULF) SUSPENSION PO ONE (14:48)
[2020-04-20] MEDS: Melatonin 3 MG TABLET PO SCH (20:18)
[2020-04-20] MEDS: OLANZapine 10 MG TAB.RAPDIS PO SCH (20:19)
[2020-04-20] MEDS ORDERED: *HR* Metoprolol 5 MG/5 ML VIAL IVP ONE (20:50)
[2020-04-20] MEDS: Levalbuterol Neb 0.63 MG/3 ML IH SCH (22:32)
[2020-04-21 02:15] LABS: Basophils % 0.1 %; Eosinophils % 0.1 %; Hematocrit 34.5 % (37.5-50.1); Hemoglobin 10.3 g/dL (12.9-16.9); Immature Granulocytes % 0.7 % (0-4); Lymphocytes # 0.6 K/mcL (0.6-4.6); Lymphocytes % 4.1 %; Mean Corpuscular HGB Conc 29.9 g/dL (31.6-35.5); Mean Corpuscular Hemoglobin 22.1 pg (28.0-33.3); Mean Platelet Volume 10.2 fL (9.4-12.4); Monocytes # 1.2 K/mcL (0.0-1.3); Monocytes % 7.4 %; Neutrophils # 13.8 K/mcL (1.6-8.9); Platelet Count 227 K/mcL (140-400); Red Blood Count 4.66 M/mcL (4.19-5.50); Red Cell Distribution Width 17.2 % (11.5-14.5); Segmented Neutrophils % 87.6 %; White Blood Count 15.7 K/mcL (4.3-11.1)
[2020-04-21 02:39] LABS: BUN/Creatinine Ratio 31 (6-26); Blood Urea Nitrogen 30 mg/dL (8-23); Calcium 8.3 mg/dL (8.6-10.3); Carbon Dioxide 36 mEq/L (23-29); Chloride 95 mEq/L (98-107); Glucose 206 mg/dL (70-105); Osmolality,Calculated 300 (280-300); Potassium 3.5 mEq/L (3.5-5.1); Sodium 139 mEq/L (136-145); eGFR For African Americans > 60 (> 60); eGFR For Non-African Americans > 60 (> 60)
[2020-04-21] MEDS: Levalbuterol Neb 0.63 MG/3 ML IH SCH ×4 (03:54→22:54)
[2020-04-21] MEDS: Cholecalciferol (D-3) 1,000 UNIT (25MCG) TABLET PO SCH (08:54)
[2020-04-21] MEDS: polyethylene glycoL 3350 17 GM POWD.PACK PO SCH (08:54)
[2020-04-21] MEDS: Apixaban 5 MG TABLET PO SCH ×2 (08:55→21:17)
[2020-04-21] MEDS: DilTIAZem CD (24hr) 180 MG CAP.ER.24H PO SCH (08:55)
[2020-04-21] MEDS: BuPROPion XL (24 HR) 150 MG TABLET PO SCH (08:55)
[2020-04-21] MEDS: Torsemide 20 MG TABLET PO SCH ×2 (08:55→15:53)
[2020-04-21] MEDS: predniSONE 20 MG TABLET PO SCH (08:55)
[2020-04-21] MEDS: Lactulose Oral Soln 20 GM/30 ML UDC PO SCH ×3 (08:56→21:17)
[2020-04-21] MEDS: Budesonide/Formoterol 160/4.5 1 PUFF INH IH SCH ×2 (10:41→22:54)
[2020-04-21] MEDS: Melatonin 3 MG TABLET PO SCH (21:17)
[2020-04-21] MEDS: OLANZapine 10 MG TAB.RAPDIS PO SCH (21:17)
[2020-04-22] MEDS: Levalbuterol Neb 0.63 MG/3 ML IH SCH ×2 (04:08→09:42)
[2020-04-22 07:40] VITALS: BP 101/71
[2020-04-22] MEDS: Lactulose Oral Soln 20 GM/30 ML UDC PO SCH (08:34)
[2020-04-22] MEDS: Apixaban 5 MG TABLET PO SCH (08:34)
[2020-04-22] MEDS: polyethylene glycoL 3350 17 GM POWD.PACK PO SCH (08:34)
[2020-04-22] MEDS: Cholecalciferol (D-3) 1,000 UNIT (25MCG) TABLET PO SCH (08:34)
[2020-04-22] MEDS: predniSONE 20 MG TABLET PO SCH (08:35)
[2020-04-22] MEDS: BuPROPion XL (24 HR) 150 MG TABLET PO SCH (08:35)
[2020-04-22] MEDS: Torsemide 20 MG TABLET PO SCH (08:35)
[2020-04-22] MEDS: DilTIAZem CD (24hr) 180 MG CAP.ER.24H PO SCH (08:35)
[2020-04-22] MEDS: Budesonide/Formoterol 160/4.5 1 PUFF INH IH SCH (09:42)
== END 2020-04-22 11:32 ==
LOC: EMEROOARM 16:00 → INTOOBSV 18:56 → 2NENU 18:56 → SUATTDRO 18:56 → 2NENU 20:41
PROVIDERS: ADMIT Internal Medicine; ATTEND Internal Medicine

== ENCOUNTER 2020-05-29 02:05 | Inpatient (IN) ==
[2020-05-29 02:40] LABS: Basophils # 0.1 K/mcL (0.0-0.2); Basophils % 0.5 %; Eosinophils # 0.3 K/mcL (0.0-0.6); Eosinophils % 2.9 %; Hematocrit 34.8 % (37.5-50.1); Hemoglobin 10.3 g/dL (12.9-16.9); Immature Granulocytes % 0.6 % (0-4); Lymphocytes # 1.4 K/mcL (0.6-4.6); Lymphocytes % 12.6 %; Mean Corpuscular HGB Conc 29.6 g/dL (31.6-35.5); Mean Corpuscular Hemoglobin 21.6 pg (28.0-33.3); Mean Platelet Volume 9.2 fL (9.4-12.4); Monocytes # 1.4 K/mcL (0.0-1.3); Monocytes % 12.5 %; Neutrophils # 7.9 K/mcL (1.6-8.9); Platelet Count 363 K/mcL (140-400); Red Blood Count 4.77 M/mcL (4.19-5.50); Red Cell Distribution Width 20.8 % (11.5-14.5); Segmented Neutrophils % 70.9 %; White Blood Count 11.1 K/mcL (4.3-11.1)
[2020-05-29 02:48] LABS: INR 1.7; Prothrombin Time 19.3 Seconds (9.4-12.1)
[2020-05-29 03:02] LABS: Alanine Aminotransferase 14 Units/L (7-52); Albumin 3.2 g/dL (3.5-5.7); Albumin/Globulin Ratio 1.1 (1.1-2.2); Alkaline Phosphatase 85 Units/L (34-104); Aspartate Amino Transferase 12 Units/L (13-39); BUN/Creatinine Ratio 17 (6-26); Bilirubin,Indirect 0.2 mg/dL (0.0-1.0); Bilirubin,Total 0.2 mg/dL (0.3-1.0); Blood Urea Nitrogen 18 mg/dL (8-23); Calcium 8.2 mg/dL (8.6-10.3); Carbon Dioxide 36 mEq/L (23-29); Chloride 91 mEq/L (98-107); Creatine Kinase 55 Units/L (30-223); Glucose 108 mg/dL (70-105); Lipase 18 Units/L (11-82); Osmolality,Calculated 280 (280-300); Potassium 3.4 mEq/L (3.5-5.1); Sodium 134 mEq/L (136-145); Total Protein 6.2 g/dL (6.4-8.9); Troponin I < 0.03 ng/mL (< 0.04); eGFR For African Americans > 60 (> 60); eGFR For Non-African Americans > 60 (> 60)
[2020-05-29 03:06] LABS: Bilirubin,Urine Negative (Negative); Blood,Urine Negative (Negative); Clarity,Urine Clear (Clear); Color,Urine Colorless (Yellow); Glucose,Urine (UA) Normal (Normal); Ketones,Urine Negative (Negative); Leukocyte Esterase,Urine Negative (Negative); Nitrite,Urine Negative (Negative); PH,Urine 6.5 pH Units (5.0-8.0); Protein,Urine Negative (Neg-Trace); Specific Gravity,Urine 1.006 (1.010-1.025); Urobilinogen,Urine Normal (Normal)
[2020-05-29] MEDS ORDERED: Azithromycin 500 MG in 0.9 % Sodium Chloride 250 ML IVPB ONE (03:33)
[2020-05-29] MEDS ORDERED: cefTRIAXone 1,000 MG in 0.9 % Sodium Chloride Mini Bag 100 ML IVPB ONE (03:33)
[2020-05-29] MEDS ORDERED: Melatonin 3 MG TABLET PO PRN (05:04)
[2020-05-29] MEDS ORDERED: Naloxone 0.4 MG/ML INJ IVP PRN (05:04)
[2020-05-29] MEDS ORDERED: Ondansetron 4 MG/2 ML VIAL IVP PRN (05:04)
[2020-05-29] MEDS ORDERED: Acetaminophen 325 MG TABLET PO PRN (05:07)
[2020-05-29] MEDS ORDERED: Ipratropium/Albuterol Neb 3 ML ONE (06:02)
[2020-05-29] MEDS: *HR* Metoprolol 5 MG/5 ML VIAL IVP PRN ×2 (06:07→16:44)
[2020-05-29] MEDS: MethylPREDNISolone 40 MG/ML VIAL IVP SCH ×4 (06:07→23:26)
[2020-05-29] MEDS: Ipratropium/Albuterol Neb 3 ML IH SCH ×2 (06:08→07:33)
[2020-05-29] MEDS: Furosemide 40 MG/4 ML VIAL IVP SCH ×2 (08:38→20:31)
[2020-05-29] MEDS ORDERED: Perflutren Lipid Microsphere 1.3 ML in 0.9 % Sodium Chloride 8.7 ML IVP PRN (09:32)
[2020-05-29] MEDS ORDERED: MOM Conc 10 ML UD.LIQ PO PRN (10:27)
[2020-05-29] MEDS: Spironolactone 12.5 MG TABLET PO SCH (11:09)
[2020-05-29] MEDS: BuPROPion XL (24 HR) 150 MG TABLET PO SCH (11:10)
[2020-05-29] MEDS: Ipratropium Neb 0.5 MG NEBULIZER IH SCH ×4 (11:15→23:14)
[2020-05-29] MEDS: Lactulose Oral Soln 20 GM/30 ML UDC PO SCH ×2 (14:35→20:31)
[2020-05-29] MEDS: Apixaban 5 MG TABLET PO SCH (20:32)
[2020-05-29] MEDS: OLANZapine 10 MG TAB.RAPDIS PO SCH (20:32)
[2020-05-30 03:15] LABS: Hematocrit 31.1 % (37.5-50.1); Hemoglobin 9.2 g/dL (12.9-16.9); Mean Corpuscular HGB Conc 29.6 g/dL (31.6-35.5); Mean Corpuscular Volume 74.2 fL (83.0-100.0); Mean Platelet Volume 9.9 fL (9.4-12.4); Platelet Count 353 K/mcL (140-400); Red Blood Count 4.19 M/mcL (4.19-5.50); Red Cell Distribution Width 20.6 % (11.5-14.5); White Blood Count 8.7 K/mcL (4.3-11.1)
[2020-05-30 03:31] LABS: BUN/Creatinine Ratio 18 (6-26); Blood Urea Nitrogen 21 mg/dL (8-23); Carbon Dioxide 37 mEq/L (23-29); Chloride 94 mEq/L (98-107); Glucose 214 mg/dL (70-105); Osmolality,Calculated 291 (280-300); Sodium 136 mEq/L (136-145); eGFR For African Americans > 60 (> 60); eGFR For Non-African Americans > 60 (> 60)
[2020-05-30] MEDS: Ipratropium Neb 0.5 MG NEBULIZER IH SCH ×6 (03:50→23:16)
[2020-05-30] MEDS: MethylPREDNISolone 40 MG/ML VIAL IVP SCH ×3 (05:54→20:11)
[2020-05-30] MEDS: BuPROPion XL (24 HR) 150 MG TABLET PO SCH (08:37)
[2020-05-30] MEDS: Furosemide 40 MG/4 ML VIAL IVP SCH ×2 (08:38→20:11)
[2020-05-30] MEDS: Cholecalciferol (D-3) 1,000 UNIT (25MCG) TABLET PO SCH (08:38)
[2020-05-30] MEDS: Finasteride 5 MG TABLET PO SCH (08:38)
[2020-05-30] MEDS: Apixaban 5 MG TABLET PO SCH ×2 (08:38→20:12)
[2020-05-30] MEDS: Spironolactone 12.5 MG TABLET PO SCH (08:38)
[2020-05-30] MEDS: Lactulose Oral Soln 20 GM/30 ML UDC PO SCH ×3 (08:38→20:10)
[2020-05-30] MEDS: cefTRIAXone 1,000 MG in 0.9 % Sodium Chloride Mini Bag 100 ML IVPB SCH (08:52)
[2020-05-30] MEDS: Azithromycin 500 MG in 0.9 % Sodium Chloride 250 ML IVPB SCH (09:31)
[2020-05-30] MEDS ORDERED: Perflutren Lipid Microsphere 1.3 ML in 0.9 % Sodium Chloride 8.7 ML IVP PRN (11:15)
[2020-05-30] MEDS ORDERED: DilTIAZem CD (24hr) 180 MG CAP.ER.24H PO SCH (12:00)
[2020-05-30] MEDS ORDERED: *HR* Digoxin 0.5 MG/2 ML AMPUL IVP ONE ×2 (12:47→14:15)
[2020-05-30 13:40] LABS: Magnesium 1.9 mg/dL (1.6-2.6)
[2020-05-30] MEDS: *HR* Digoxin 0.5 MG/2 ML AMPUL IVP SCH (18:33)
[2020-05-30 20:02] LABS: ABG Base Excess 11 mEq/L (-2 to 3); ABG HCO3 38 mEq/L (21-27); ABG Oxygen Saturation 96 % (95-98); ABG PCO2 63 mmHg (35-45); ABG PH 7.39 pH Units (7.32-7.45); ABG PO2 83 mmHg (85-104); ABG TCO2 40 mEq/L (20-26); Blood Gas Pressure Support 10 cm H2O
[2020-05-30] MEDS: OLANZapine 10 MG TAB.RAPDIS PO SCH (20:12)
[2020-05-31 02:46] LABS: Basophils % 0.1 %; Hematocrit 31.5 % (37.5-50.1); Hemoglobin 9.2 g/dL (12.9-16.9); Immature Granulocytes % 0.7 % (0-4); Lymphocytes # 0.5 K/mcL (0.6-4.6); Lymphocytes % 3.4 %; Mean Corpuscular HGB Conc 29.2 g/dL (31.6-35.5); Mean Corpuscular Volume 75.2 fL (83.0-100.0); Mean Platelet Volume 9.4 fL (9.4-12.4); Monocytes # 0.5 K/mcL (0.0-1.3); Monocytes % 3.2 %; Neutrophils # 14.2 K/mcL (1.6-8.9); Platelet Count 359 K/mcL (140-400); Red Blood Count 4.19 M/mcL (4.19-5.50); Red Cell Distribution Width 20.6 % (11.5-14.5); Segmented Neutrophils % 92.6 %; White Blood Count 15.3 K/mcL (4.3-11.1)
[2020-05-31 03:08] LABS: BUN/Creatinine Ratio 25 (6-26); Blood Urea Nitrogen 24 mg/dL (8-23); Calcium 8.4 mg/dL (8.6-10.3); Carbon Dioxide 39 mEq/L (23-29); Chloride 95 mEq/L (98-107); Glucose 188 mg/dL (70-105); Osmolality,Calculated 297 (280-300); Potassium 4.1 mEq/L (3.5-5.1); Sodium 139 mEq/L (136-145); eGFR For African Americans > 60 (> 60); eGFR For Non-African Americans > 60 (> 60)
[2020-05-31] MEDS: Ipratropium Neb 0.5 MG NEBULIZER IH SCH ×5 (03:36→19:52)
[2020-05-31] MEDS ORDERED: Perflutren Lipid Microsphere 1.3 ML in 0.9 % Sodium Chloride 8.7 ML IVP PRN (08:00)
[2020-05-31] MEDS: Cholecalciferol (D-3) 1,000 UNIT (25MCG) TABLET PO SCH (09:30)
[2020-05-31] MEDS: Finasteride 5 MG TABLET PO SCH (09:30)
[2020-05-31] MEDS: BuPROPion XL (24 HR) 150 MG TABLET PO SCH (09:30)
[2020-05-31] MEDS: Spironolactone 12.5 MG TABLET PO SCH (09:30)
[2020-05-31] MEDS: Azithromycin 500 MG in 0.9 % Sodium Chloride 250 ML IVPB SCH (09:31)
[2020-05-31] MEDS: cefTRIAXone 1,000 MG in 0.9 % Sodium Chloride Mini Bag 100 ML IVPB SCH (09:31)
[2020-05-31] MEDS: Lactulose Oral Soln 20 GM/30 ML UDC PO SCH ×3 (09:31→20:29)
[2020-05-31] MEDS: Furosemide 40 MG/4 ML VIAL IVP SCH ×2 (09:33→20:30)
[2020-05-31] MEDS: MethylPREDNISolone 40 MG/ML VIAL IVP SCH ×2 (09:33→20:30)
[2020-05-31] MEDS: Apixaban 5 MG TABLET PO SCH ×2 (09:49→20:30)
[2020-05-31] MEDS: DilTIAZem CD (24hr) 120 MG CAP.ER.24H PO SCH (12:36)
[2020-05-31] MEDS: OLANZapine 10 MG TAB.RAPDIS PO SCH (20:30)
[2020-06-01] MEDS: Ipratropium Neb 0.5 MG NEBULIZER IH SCH ×7 (00:02→20:23)
[2020-06-01 01:50] LABS: Basophils % 0.1 %; Hematocrit 33.1 % (37.5-50.1); Hemoglobin 9.7 g/dL (12.9-16.9); Immature Granulocytes % 1.2 % (0-4); Lymphocytes # 0.6 K/mcL (0.6-4.6); Lymphocytes % 3.6 %; Mean Corpuscular HGB Conc 29.3 g/dL (31.6-35.5); Mean Corpuscular Hemoglobin 22.1 pg (28.0-33.3); Mean Corpuscular Volume 75.4 fL (83.0-100.0); Mean Platelet Volume 9.5 fL (9.4-12.4); Monocytes # 0.5 K/mcL (0.0-1.3); Monocytes % 3.3 %; Neutrophils # 14.1 K/mcL (1.6-8.9); Nucleated Red Blood Cells 0.1 /100 WBC (0); Platelet Count 364 K/mcL (140-400); Red Blood Count 4.39 M/mcL (4.19-5.50); Red Cell Distribution Width 20.8 % (11.5-14.5); Segmented Neutrophils % 91.8 %; White Blood Count 15.4 K/mcL (4.3-11.1)
[2020-06-01 02:08] LABS: BUN/Creatinine Ratio 33 (6-26); Blood Urea Nitrogen 29 mg/dL (8-23); Calcium 8.5 mg/dL (8.6-10.3); Carbon Dioxide 38 mEq/L (23-29); Chloride 92 mEq/L (98-107); Glucose 181 mg/dL (70-105); Osmolality,Calculated 294 (280-300); Potassium 4.2 mEq/L (3.5-5.1); Sodium 137 mEq/L (136-145); eGFR For African Americans > 60 (> 60); eGFR For Non-African Americans > 60 (> 60)
[2020-06-01] MEDS: *HR* Digoxin 0.5 MG/2 ML AMPUL IVP SCH (08:29)
[2020-06-01] MEDS: BuPROPion XL (24 HR) 150 MG TABLET PO SCH (09:12)
[2020-06-01] MEDS: Cholecalciferol (D-3) 1,000 UNIT (25MCG) TABLET PO SCH (09:12)
[2020-06-01] MEDS: Finasteride 5 MG TABLET PO SCH (09:12)
[2020-06-01] MEDS: DilTIAZem CD (24hr) 120 MG CAP.ER.24H PO SCH (09:13)
[2020-06-01] MEDS: Lactulose Oral Soln 20 GM/30 ML UDC PO SCH ×3 (09:13→20:17)
[2020-06-01] MEDS: Spironolactone 12.5 MG TABLET PO SCH (09:13)
[2020-06-01] MEDS: Apixaban 5 MG TABLET PO SCH ×2 (09:13→20:17)
[2020-06-01] MEDS: MethylPREDNISolone 40 MG/ML VIAL IVP SCH ×2 (09:14→20:17)
[2020-06-01] MEDS: Furosemide 40 MG/4 ML VIAL IVP SCH ×2 (09:15→20:16)
[2020-06-01] MEDS: cefTRIAXone 1,000 MG in 0.9 % Sodium Chloride Mini Bag 100 ML IVPB SCH (09:16)
[2020-06-01] MEDS: *HR* Metoprolol 5 MG/5 ML VIAL IVP PRN ×2 (10:25→17:42)
[2020-06-01] MEDS: Azithromycin 500 MG in 0.9 % Sodium Chloride 250 ML IVPB SCH (11:16)
[2020-06-01] MEDS: OLANZapine 10 MG TAB.RAPDIS PO SCH (20:17)
[2020-06-02] MEDS: Ipratropium Neb 0.5 MG NEBULIZER IH SCH ×4 (00:25→11:46)
[2020-06-02 05:30] LABS: BUN/Creatinine Ratio 39 (6-26); Blood Urea Nitrogen 28 mg/dL (8-23); Calcium 8.5 mg/dL (8.6-10.3); Carbon Dioxide 38 mEq/L (23-29); Chloride 94 mEq/L (98-107); Glucose 189 mg/dL (70-105); Osmolality,Calculated 295 (280-300); Potassium 4.1 mEq/L (3.5-5.1); Sodium 137 mEq/L (136-145); eGFR For African Americans > 60 (> 60); eGFR For Non-African Americans > 60 (> 60)
[2020-06-02] MEDS: MethylPREDNISolone 40 MG/ML VIAL IVP SCH (08:52)
[2020-06-02] MEDS ORDERED: Torsemide 20 MG TABLET PO SCH (09:00)
[2020-06-02] MEDS ORDERED: DilTIAZem CD (24hr) 240 MG CAP.ER.24H PO SCH (09:00)
[2020-06-02 10:16] VITALS: BP 108/70
[2020-06-02] MEDS: Cholecalciferol (D-3) 1,000 UNIT (25MCG) TABLET PO SCH (10:22)
[2020-06-02] MEDS: Spironolactone 12.5 MG TABLET PO SCH (10:23)
[2020-06-02] MEDS: Apixaban 5 MG TABLET PO SCH (10:23)
[2020-06-02] MEDS: Finasteride 5 MG TABLET PO SCH (10:23)
[2020-06-02] MEDS: BuPROPion XL (24 HR) 150 MG TABLET PO SCH (10:24)
[2020-06-02] MEDS: Lactulose Oral Soln 20 GM/30 ML UDC PO SCH (10:24)
[2020-06-02] MEDS: cefTRIAXone 1,000 MG in 0.9 % Sodium Chloride Mini Bag 100 ML IVPB SCH (10:25)
[2020-06-02] MEDS: Azithromycin 500 MG in 0.9 % Sodium Chloride 250 ML IVPB SCH (11:24)
== END 2020-06-02 14:37 | DRG 291 ==
LOC: 2ANU 02:05 → EMEROOARM 02:05 → SUATTDRO 04:53 → 2ANU 05:14
PROVIDERS: ADMIT Student in an Organized Health Care Education/Training Program; ATTEND Internal Medicine

== ENCOUNTER 2020-06-13 04:17 | Observation (INO) ==
[2020-06-13 05:20] LABS: ABG Base Excess 12 mEq/L (-2 to 3); ABG HCO3 37 mEq/L (21-27); ABG Oxygen Saturation 100 % (95-98); ABG PCO2 54 mmHg (35-45); ABG PH 7.45 pH Units (7.32-7.45); ABG PO2 178 mmHg (85-104); ABG TCO2 39 mEq/L (20-26); Blood Gas Pressure Support 7 cm H2O
[2020-06-13 05:28] LABS: INR 1.8; Prothrombin Time 20.6 Seconds (9.4-12.1)
[2020-06-13 05:29] LABS: Basophils % 0.2 %; Hemoglobin 9.3 g/dL (12.9-16.9); Mean Corpuscular Hemoglobin 21.9 pg (28.0-33.3); Red Cell Distribution Width 22.5 % (11.5-14.5)
[2020-06-13 05:31] LABS: Eosinophils # 0.3 K/mcL (0.0-0.6); Eosinophils % 2.5 %; Hematocrit 31.5 % (37.5-50.1); Immature Granulocytes % 0.5 % (0-4); Immature Platelets 8.3 % (1.1-6.1); Lymphocytes # 1.3 K/mcL (0.6-4.6); Lymphocytes % 11.9 %; Mean Corpuscular HGB Conc 29.5 g/dL (31.6-35.5); Mean Corpuscular Volume 74.1 fL (83.0-100.0); Mean Platelet Volume 10.8 fL (9.4-12.4); Monocytes # 1.2 K/mcL (0.0-1.3); Monocytes % 10.9 %; Neutrophils # 8.1 K/mcL (1.6-8.9); Platelet Count 218 K/mcL (140-400); Red Blood Count 4.25 M/mcL (4.19-5.50)
[2020-06-13] MEDS ORDERED: Vancomycin 2,000 MG/520 ML IV.SOLN IVPB ONE (05:35)
[2020-06-13] MEDS ORDERED: Piperacillin/Tazobactam 3.375 GM in 0.9 % Sodium Chloride Mini Bag 100 ML IVPB ONE (05:35)
[2020-06-13 05:43] LABS: Alanine Aminotransferase 17 Units/L (7-52); Albumin 3.4 g/dL (3.5-5.7); Albumin/Globulin Ratio 1.2 (1.1-2.2); Alkaline Phosphatase 69 Units/L (34-104); Aspartate Amino Transferase 12 Units/L (13-39); BUN/Creatinine Ratio 20 (6-26); Bilirubin,Indirect 0.4 mg/dL (0.0-1.0); Bilirubin,Total 0.4 mg/dL (0.3-1.0); Blood Urea Nitrogen 19 mg/dL (8-23); Calcium 8.7 mg/dL (8.6-10.3); Carbon Dioxide 36 mEq/L (23-29); Chloride 90 mEq/L (98-107); Globulin 2.9 g/dL (2.4-3.5); Glucose 110 mg/dL (70-105); Osmolality,Calculated 285 (280-300); Potassium 3.4 mEq/L (3.5-5.1); Sodium 136 mEq/L (136-145); Total Protein 6.3 g/dL (6.4-8.9); Troponin I < 0.03 ng/mL (< 0.04); eGFR For African Americans > 60 (> 60); eGFR For Non-African Americans > 60 (> 60)
[2020-06-13] MEDS ORDERED: Ondansetron 4 MG/2 ML VIAL IVP PRN (09:12)
[2020-06-13] MEDS ORDERED: Acetaminophen 325 MG TABLET PO PRN (09:12)
[2020-06-13] MEDS ORDERED: Melatonin 3 MG TABLET PO PRN (09:12)
[2020-06-13] MEDS ORDERED: Naloxone 0.4 MG/ML INJ IVP PRN (09:12)
[2020-06-13] MEDS ORDERED: Levalbuterol Neb 0.63 MG/3 ML IH PRN (09:15)
[2020-06-13] MEDS: Spironolactone 25 MG TABLET PO SCH (10:43)
[2020-06-13] MEDS: DilTIAZem CD (24hr) 240 MG CAP.ER.24H PO SCH (10:43)
[2020-06-13] MEDS: Torsemide 20 MG TABLET PO SCH ×2 (10:57→17:31)
[2020-06-13] MEDS: Ipratropium/Albuterol Neb 3 ML IH SCH ×3 (11:17→23:30)
[2020-06-13] MEDS ORDERED: MethylPREDNISolone 40 MG/ML VIAL IVP ONE (13:46)
[2020-06-13] MEDS ORDERED: Azithromycin 250 MG TABLET PO ONE (13:46)
[2020-06-13] MEDS ORDERED: Piperacillin/Tazobactam 3.375 GM in 0.9 % Sodium Chloride Mini Bag 100 ML IVPB SCH (14:00)
[2020-06-13] MEDS: Lactulose Oral Soln 20 GM/30 ML UDC PO SCH ×2 (14:15→21:19)
[2020-06-13] MEDS ORDERED: OLANZapine 10 MG TAB.RAPDIS PO SCH (21:00)
[2020-06-13] MEDS: Apixaban 5 MG TABLET PO SCH (21:18)
[2020-06-13] MEDS: Nystatin Ointment 15 GM TUBE TP SCH (22:09)
[2020-06-14 03:09] LABS: Hematocrit 31.9 % (37.5-50.1); Hemoglobin 9.6 g/dL (12.9-16.9); Mean Corpuscular HGB Conc 30.1 g/dL (31.6-35.5); Mean Corpuscular Hemoglobin 22.3 pg (28.0-33.3); Mean Corpuscular Volume 74.2 fL (83.0-100.0); Mean Platelet Volume 10.5 fL (9.4-12.4); Platelet Count 227 K/mcL (140-400); Red Cell Distribution Width 22.5 % (11.5-14.5); White Blood Count 7.7 K/mcL (4.3-11.1)
[2020-06-14 03:26] LABS: % Iron Saturation 4 % (20-55); BUN/Creatinine Ratio 17 (6-26); Blood Urea Nitrogen 15 mg/dL (8-23); Calcium 8.5 mg/dL (8.6-10.3); Carbon Dioxide 35 mEq/L (23-29); Chloride 92 mEq/L (98-107); Glucose 173 mg/dL (70-105); Iron 14 mcg/dL (65-175); Magnesium 1.9 mg/dL (1.6-2.6); Osmolality,Calculated 291 (280-300); Potassium 3.3 mEq/L (3.5-5.1); Sodium 138 mEq/L (136-145); Transferrin 242 mg/dL (203-362); eGFR For African Americans > 60 (> 60); eGFR For Non-African Americans > 60 (> 60)
[2020-06-14 03:45] LABS: Ferritin 21 ng/mL (20-250)
[2020-06-14 07:16] VITALS: BP 126/80
[2020-06-14] MEDS: Spironolactone 25 MG TABLET PO SCH (08:52)
[2020-06-14] MEDS: Torsemide 20 MG TABLET PO SCH (08:52)
[2020-06-14] MEDS: DilTIAZem CD (24hr) 240 MG CAP.ER.24H PO SCH (08:52)
[2020-06-14] MEDS: Apixaban 5 MG TABLET PO SCH (08:52)
[2020-06-14] MEDS: Nystatin Ointment 15 GM TUBE TP SCH (08:53)
[2020-06-14] MEDS: Lactulose Oral Soln 20 GM/30 ML UDC PO SCH (08:53)
[2020-06-14] MEDS ORDERED: predniSONE 20 MG TABLET PO SCH (09:00)
[2020-06-14] MEDS ORDERED: Finasteride 5 MG TABLET PO SCH (09:00)
[2020-06-14] MEDS ORDERED: polyethylene glycoL 3350 17 GM POWD.PACK PO SCH (09:00)
[2020-06-14] MEDS ORDERED: Azithromycin 250 MG TABLET PO SCH (09:00)
[2020-06-14] MEDS: Ipratropium/Albuterol Neb 3 ML IH SCH (09:54)
== END 2020-06-14 12:13 ==
LOC: SUATTDRO → EMEROOARM 04:17 → CDU 04:17 → SUATTDRO 07:50 → CDU 09:00 → 2ANU 13:33
PROVIDERS: ADMIT Internal Medicine; ATTEND Internal Medicine

== ENCOUNTER 2020-07-20 06:51 | Inpatient (IN) ==
[2020-07-20 07:39] LABS: Basophils % 0.2 %; Eosinophils # 0.2 K/mcL (0.0-0.6); Eosinophils % 1.4 %; Hematocrit 33.6 % (37.5-50.1); Hemoglobin 9.8 g/dL (12.9-16.9); Immature Granulocytes % 0.3 % (0-4); Lymphocytes # 1.4 K/mcL (0.6-4.6); Lymphocytes % 11.4 %; Mean Corpuscular HGB Conc 29.2 g/dL (31.6-35.5); Mean Corpuscular Hemoglobin 21.5 pg (28.0-33.3); Mean Corpuscular Volume 73.8 fL (83.0-100.0); Mean Platelet Volume 9.5 fL (9.4-12.4); Monocytes # 1.5 K/mcL (0.0-1.3); Monocytes % 12.2 %; Neutrophils # 9.3 K/mcL (1.6-8.9); Platelet Count 247 K/mcL (140-400); Red Blood Count 4.55 M/mcL (4.19-5.50); Red Cell Distribution Width 21.1 % (11.5-14.5); Segmented Neutrophils % 74.5 %; White Blood Count 12.5 K/mcL (4.3-11.1)
[2020-07-20 07:55] LABS: Alanine Aminotransferase 10 Units/L (7-52); Albumin 3.4 g/dL (3.5-5.7); Albumin/Globulin Ratio 1.4 (1.1-2.2); Alkaline Phosphatase 70 Units/L (34-104); Aspartate Amino Transferase 8 Units/L (13-39); BUN/Creatinine Ratio 13 (6-26); Bilirubin,Direct 0.1 mg/dL (0.0-0.2); Bilirubin,Indirect 0.2 mg/dL (0.0-1.0); Bilirubin,Total 0.3 mg/dL (0.3-1.0); Blood Urea Nitrogen 15 mg/dL (8-23); Calcium 8.5 mg/dL (8.6-10.3); Carbon Dioxide 37 mEq/L (23-29); Chloride 95 mEq/L (98-107); Creatine Kinase 30 Units/L (30-223); Globulin 2.5 g/dL (2.4-3.5); Glucose 106 mg/dL (70-105); Osmolality,Calculated 285 (280-300); Potassium 3.2 mEq/L (3.5-5.1); Sodium 137 mEq/L (136-145); Total Protein 5.9 g/dL (6.4-8.9); eGFR For African Americans > 60 (> 60); eGFR For Non-African Americans > 60 (> 60)
[2020-07-20 09:09] LABS: Bilirubin,Urine Negative (Negative); Blood,Urine Negative (Negative); Clarity,Urine Clear (Clear); Color,Urine Light-Yellow (Yellow); Glucose,Urine (UA) Normal (Normal); Ketones,Urine Negative (Negative); Leukocyte Esterase,Urine Negative (Negative); Nitrite,Urine Negative (Negative); Protein,Urine Negative (Neg-Trace); Specific Gravity,Urine 1.011 (1.010-1.025); Urobilinogen,Urine Normal (Normal)
[2020-07-20 09:13] LABS: INR 1.5; Prothrombin Time 16.9 Seconds (9.4-12.1)
[2020-07-20 09:16] LABS: Activated Partial Thrombo Time 30.4 Seconds (26.0-36.0)
[2020-07-20 09:17] LABS: Troponin I < 0.03 ng/mL (< 0.04)
[2020-07-20] MEDS ORDERED: Furosemide 40 MG/4 ML VIAL IVP ONE (09:37)
[2020-07-20] MEDS ORDERED: Ondansetron 4 MG/2 ML VIAL IVP PRN (09:57)
[2020-07-20] MEDS ORDERED: Naloxone 0.4 MG/ML INJ IVP PRN (09:57)
[2020-07-20] MEDS ORDERED: Potassium Chloride 40 MEQ, Lidocaine 1% 2 ML in 0.9 % Sodium Chloride 500 ML IVPB ONE (09:57)
[2020-07-20] MEDS ORDERED: Acetaminophen 325 MG TABLET PO PRN (09:57)
[2020-07-20] MEDS: Apixaban 5 MG TABLET PO SCH ×2 (12:22→21:17)
[2020-07-20] MEDS: DilTIAZem CD (24hr) 240 MG CAP.ER.24H PO SCH (12:22)
[2020-07-20] MEDS: Levalbuterol Neb 1.25 MG/3 ML IH SCH ×2 (15:54→22:51)
[2020-07-20] MEDS: Furosemide 40 MG/4 ML VIAL IVP SCH (20:40)
[2020-07-21] MEDS: Levalbuterol Neb 1.25 MG/3 ML IH SCH ×2 (03:58→10:36)
[2020-07-21 06:34] LABS: Basophils % 0.2 %; Eosinophils # 0.2 K/mcL (0.0-0.6); Eosinophils % 1.8 %; Hematocrit 35.4 % (37.5-50.1); Hemoglobin 10.3 g/dL (12.9-16.9); Immature Granulocytes % 0.3 % (0-4); Lymphocytes # 1.3 K/mcL (0.6-4.6); Lymphocytes % 12.3 %; Mean Corpuscular HGB Conc 29.1 g/dL (31.6-35.5); Mean Corpuscular Volume 75.6 fL (83.0-100.0); Mean Platelet Volume 10.4 fL (9.4-12.4); Monocytes # 1.2 K/mcL (0.0-1.3); Monocytes % 11.6 %; Neutrophils # 7.5 K/mcL (1.6-8.9); Platelet Count 275 K/mcL (140-400); Red Blood Count 4.68 M/mcL (4.19-5.50); Red Cell Distribution Width 21.6 % (11.5-14.5); Segmented Neutrophils % 73.8 %; White Blood Count 10.2 K/mcL (4.3-11.1)
[2020-07-21 06:51] LABS: BUN/Creatinine Ratio 14 (6-26); Blood Urea Nitrogen 15 mg/dL (8-23); Calcium 8.8 mg/dL (8.6-10.3); Carbon Dioxide 34 mEq/L (23-29); Chloride 97 mEq/L (98-107); Glucose 83 mg/dL (70-105); Magnesium 2.3 mg/dL (1.6-2.6); Osmolality,Calculated 288 (280-300); Potassium 3.6 mEq/L (3.5-5.1); Sodium 139 mEq/L (136-145); eGFR For African Americans > 60 (> 60); eGFR For Non-African Americans > 60 (> 60)
[2020-07-21 07:09] LABS: Platelet Estimate Normal (Normal)
[2020-07-21 07:10] LABS: Hypochromasia Present (Not Present)
[2020-07-21] MEDS: DilTIAZem CD (24hr) 240 MG CAP.ER.24H PO SCH (09:18)
[2020-07-21] MEDS: Apixaban 5 MG TABLET PO SCH ×2 (09:18→20:03)
[2020-07-21] MEDS: Furosemide 40 MG/4 ML VIAL IVP SCH ×2 (09:18→20:02)
[2020-07-21] MEDS ORDERED: *HR* Dextrose 50 % in Water (Vial) 50 ML VIAL IVP PRN (11:22)
[2020-07-21] MEDS ORDERED: D5% in Water 1,000 ML IVC PRN (11:22)
[2020-07-21] MEDS ORDERED: Dextrose Gel 15 GM/37.5 ML TUBE PO PRN ×2 (11:22)
[2020-07-21 11:57] LABS: VBG HCO3 31 mEq/L (21-27); VBG PCO2 52 mmHg (41-51); VBG PH 7.39 pH Units (7.32-7.42); VBG PO2 58 mmHg (25-50)
[2020-07-21] MEDS: Ipratropium/Albuterol Neb 3 ML IH SCH ×3 (15:31→23:41)
[2020-07-21] MEDS: predniSONE 20 MG TABLET PO SCH (16:13)
[2020-07-21] MEDS: Insulin LISPRO 300 UNITS/3 ML VIAL SUBQ SCH (17:52)
[2020-07-22] MEDS: Insulin LISPRO 300 UNITS/3 ML VIAL SUBQ SCH ×5 (00:58→23:45)
[2020-07-22] MEDS ORDERED: *HR* Metoprolol 5 MG/5 ML VIAL IVP ONE ×2 (01:03→21:46)
[2020-07-22] MEDS: Ipratropium/Albuterol Neb 3 ML IH SCH ×6 (03:43→21:19)
[2020-07-22 08:50] LABS: Basophils % 0.1 %; Eosinophils % 0.1 %; Hematocrit 33.8 % (37.5-50.1); Hemoglobin 9.8 g/dL (12.9-16.9); Immature Granulocytes % 0.4 % (0-4); Lymphocytes # 1.1 K/mcL (0.6-4.6); Lymphocytes % 10.7 %; Mean Corpuscular Hemoglobin 21.4 pg (28.0-33.3); Mean Corpuscular Volume 73.8 fL (83.0-100.0); Mean Platelet Volume 10.1 fL (9.4-12.4); Monocytes # 0.9 K/mcL (0.0-1.3); Monocytes % 9.3 %; Neutrophils # 7.9 K/mcL (1.6-8.9); Platelet Count 277 K/mcL (140-400); Red Blood Count 4.58 M/mcL (4.19-5.50); Red Cell Distribution Width 21.2 % (11.5-14.5); Segmented Neutrophils % 79.4 %
[2020-07-22 08:58] LABS: BUN/Creatinine Ratio 19 (6-26); Blood Urea Nitrogen 17 mg/dL (8-23); Calcium 8.8 mg/dL (8.6-10.3); Carbon Dioxide 32 mEq/L (23-29); Chloride 96 mEq/L (98-107); Glucose 123 mg/dL (70-105); Osmolality,Calculated 285 (280-300); Potassium 3.4 mEq/L (3.5-5.1); Sodium 136 mEq/L (136-145); eGFR For African Americans > 60 (> 60); eGFR For Non-African Americans > 60 (> 60)
[2020-07-22] MEDS: BuPROPion XL (24 HR) 150 MG TABLET PO SCH (09:43)
[2020-07-22] MEDS: predniSONE 20 MG TABLET PO SCH (09:43)
[2020-07-22] MEDS: Cholecalciferol (D-3) 1,000 UNIT (25MCG) TABLET PO SCH (09:43)
[2020-07-22] MEDS: Finasteride 5 MG TABLET PO SCH (09:44)
[2020-07-22] MEDS: Furosemide 40 MG/4 ML VIAL IVP SCH ×2 (09:44→20:53)
[2020-07-22] MEDS: Apixaban 5 MG TABLET PO SCH ×2 (09:44→20:53)
[2020-07-22] MEDS: DilTIAZem CD (24hr) 240 MG CAP.ER.24H PO SCH (09:44)
[2020-07-22] MEDS: Lactulose Oral Soln 20 GM/30 ML UDC PO SCH ×3 (09:44→20:53)
[2020-07-22] MEDS: Spironolactone 25 MG TABLET PO SCH (09:44)
[2020-07-22] MEDS ORDERED: DilTIAZem CD (24hr) 120 MG CAP.ER.24H PO ONE (16:11)
[2020-07-22] MEDS: Melatonin 3 MG TABLET PO SCH (20:53)
[2020-07-22] MEDS: OLANZapine 10 MG TAB.RAPDIS PO SCH (20:53)
[2020-07-23 02:42] LABS: Hematocrit 33.7 % (37.5-50.1); Hemoglobin 9.8 g/dL (12.9-16.9); Mean Corpuscular HGB Conc 29.1 g/dL (31.6-35.5); Mean Corpuscular Hemoglobin 21.7 pg (28.0-33.3); Mean Corpuscular Volume 74.6 fL (83.0-100.0); Platelet Count 273 K/mcL (140-400); Red Blood Count 4.52 M/mcL (4.19-5.50); Red Cell Distribution Width 21.2 % (11.5-14.5); White Blood Count 10.1 K/mcL (4.3-11.1)
[2020-07-23 03:03] LABS: BUN/Creatinine Ratio 16 (6-26); Blood Urea Nitrogen 16 mg/dL (8-23); Calcium 8.8 mg/dL (8.6-10.3); Carbon Dioxide 36 mEq/L (23-29); Chloride 96 mEq/L (98-107); Glucose 153 mg/dL (70-105); Magnesium 2.2 mg/dL (1.6-2.6); Osmolality,Calculated 288 (280-300); Potassium 3.6 mEq/L (3.5-5.1); Sodium 137 mEq/L (136-145); eGFR For African Americans > 60 (> 60); eGFR For Non-African Americans > 60 (> 60)
[2020-07-23] MEDS: Ipratropium/Albuterol Neb 3 ML IH SCH ×4 (03:16→22:30)
[2020-07-23] MEDS: Insulin LISPRO 300 UNITS/3 ML VIAL SUBQ SCH ×4 (05:53→20:55)
[2020-07-23] MEDS: BuPROPion XL (24 HR) 150 MG TABLET PO SCH (09:13)
[2020-07-23] MEDS: Apixaban 5 MG TABLET PO SCH ×2 (09:14→20:54)
[2020-07-23] MEDS: DilTIAZem CD (24hr) 180 MG CAP.ER.24H PO SCH (09:14)
[2020-07-23] MEDS: Cholecalciferol (D-3) 1,000 UNIT (25MCG) TABLET PO SCH (09:14)
[2020-07-23] MEDS: Lactulose Oral Soln 20 GM/30 ML UDC PO SCH ×3 (09:14→20:55)
[2020-07-23] MEDS: predniSONE 20 MG TABLET PO SCH (09:15)
[2020-07-23] MEDS: Finasteride 5 MG TABLET PO SCH (09:15)
[2020-07-23] MEDS: Furosemide 40 MG/4 ML VIAL IVP SCH ×2 (09:15→20:52)
[2020-07-23] MEDS: Spironolactone 25 MG TABLET PO SCH (09:15)
[2020-07-23] MEDS ORDERED: DilTIAZem CD (24hr) 120 MG CAP.ER.24H PO ONE (15:47)
[2020-07-23] MEDS: Melatonin 3 MG TABLET PO SCH (20:52)
[2020-07-23] MEDS: OLANZapine 10 MG TAB.RAPDIS PO SCH (20:54)
[2020-07-24 01:33] LABS: BUN/Creatinine Ratio 18 (6-26); Blood Urea Nitrogen 21 mg/dL (8-23); Calcium 8.7 mg/dL (8.6-10.3); Carbon Dioxide 36 mEq/L (23-29); Chloride 98 mEq/L (98-107); Glucose 208 mg/dL (70-105); Osmolality,Calculated 299 (280-300); Potassium 3.9 mEq/L (3.5-5.1); Sodium 140 mEq/L (136-145); eGFR For African Americans > 60 (> 60); eGFR For Non-African Americans > 60 (> 60)
[2020-07-24] MEDS: Ipratropium/Albuterol Neb 3 ML IH SCH ×4 (04:10→22:18)
[2020-07-24] MEDS: Insulin LISPRO 300 UNITS/3 ML VIAL SUBQ SCH ×4 (09:35→21:57)
[2020-07-24] MEDS: Apixaban 5 MG TABLET PO SCH ×2 (09:37→21:52)
[2020-07-24] MEDS: Spironolactone 25 MG TABLET PO SCH (09:37)
[2020-07-24] MEDS: Finasteride 5 MG TABLET PO SCH (09:37)
[2020-07-24] MEDS: BuPROPion XL (24 HR) 150 MG TABLET PO SCH (09:38)
[2020-07-24] MEDS: predniSONE 20 MG TABLET PO SCH (09:38)
[2020-07-24] MEDS: Cholecalciferol (D-3) 1,000 UNIT (25MCG) TABLET PO SCH (09:38)
[2020-07-24] MEDS: DilTIAZem CD (24hr) 180 MG CAP.ER.24H PO SCH (09:38)
[2020-07-24] MEDS: Furosemide 40 MG/4 ML VIAL IVP SCH ×2 (09:39→16:01)
[2020-07-24] MEDS: Lactulose Oral Soln 20 GM/30 ML UDC PO SCH ×3 (09:39→21:51)
[2020-07-24 10:35] LABS: Adenovirus Not Detected (Not Detect); Bordetella Pertussis Not Detected (Not Detect); Chlamydophila pneumoniae Not Detected (Not Detect); Coronavirus 229E Not Detected (Not Detect); Coronavirus HKU1 Not Detected (Not Detect); Coronavirus NL63 Not Detected (Not Detect); Coronavirus OC43 Not Detected (Not Detect); Human Metapneumovirus Not Detected (Not Detect); Human Rhinovirus/Enterovirus Not Detected (Not Detect); Influenza A Subtype 2009 H1 Not Detected (Not Detect); Influenza B Not Detected (Not Detect); Mycoplasma pneumoniae Not Detected (Not Detect); Parainfluenza Virus 1 Not Detected (Not Detect); Parainfluenza Virus 2 Not Detected (Not Detect); Parainfluenza Virus 3 Not Detected (Not Detect); Parainfluenza Virus 4 Not Detected (Not Detect); Respiratory Syncytial Virus Not Detected (Not Detect); SARS-CoV-2 Not Detected (Not Detect)
[2020-07-24] MEDS: OLANZapine 10 MG TAB.RAPDIS PO SCH (21:51)
[2020-07-24] MEDS: Melatonin 3 MG TABLET PO SCH (21:52)
[2020-07-25 03:48] LABS: BUN/Creatinine Ratio 19 (6-26); Blood Urea Nitrogen 23 mg/dL (8-23); Calcium 9.1 mg/dL (8.6-10.3); Carbon Dioxide 35 mEq/L (23-29); Chloride 95 mEq/L (98-107); Glucose 141 mg/dL (70-105); Magnesium 2.1 mg/dL (1.6-2.6); Osmolality,Calculated 292 (280-300); Potassium 3.7 mEq/L (3.5-5.1); Sodium 138 mEq/L (136-145); eGFR For African Americans > 60 (> 60); eGFR For Non-African Americans > 60 (> 60)
[2020-07-25] MEDS: Ipratropium/Albuterol Neb 3 ML IH SCH ×4 (03:58→22:16)
[2020-07-25] MEDS: DilTIAZem CD (24hr) 180 MG CAP.ER.24H PO SCH (08:10)
[2020-07-25] MEDS: Finasteride 5 MG TABLET PO SCH (08:10)
[2020-07-25] MEDS: Spironolactone 25 MG TABLET PO SCH (08:10)
[2020-07-25] MEDS: predniSONE 20 MG TABLET PO SCH (08:11)
[2020-07-25] MEDS: BuPROPion XL (24 HR) 150 MG TABLET PO SCH (08:14)
[2020-07-25] MEDS: Apixaban 5 MG TABLET PO SCH ×2 (08:15→21:24)
[2020-07-25] MEDS: Cholecalciferol (D-3) 1,000 UNIT (25MCG) TABLET PO SCH (08:15)
[2020-07-25] MEDS: Furosemide 40 MG/4 ML VIAL IVP SCH ×2 (08:15→17:10)
[2020-07-25] MEDS: Lactulose Oral Soln 20 GM/30 ML UDC PO SCH ×3 (08:15→21:24)
[2020-07-25] MEDS: Insulin LISPRO 300 UNITS/3 ML VIAL SUBQ SCH ×4 (08:36→22:46)
[2020-07-25] MEDS ORDERED: Metoprolol XL (24 HR) Succ 50 MG TAB.ER.24H PO ONE (11:30)
[2020-07-25] MEDS: Melatonin 3 MG TABLET PO SCH (21:25)
[2020-07-25] MEDS: OLANZapine 10 MG TAB.RAPDIS PO SCH (21:25)
[2020-07-26 02:00] LABS: Hematocrit 35.2 % (37.5-50.1); Hemoglobin 10.6 g/dL (12.9-16.9); Mean Corpuscular HGB Conc 30.1 g/dL (31.6-35.5); Mean Corpuscular Hemoglobin 22.1 pg (28.0-33.3); Mean Corpuscular Volume 73.3 fL (83.0-100.0); Mean Platelet Volume 10.5 fL (9.4-12.4); Platelet Count 309 K/mcL (140-400); Red Cell Distribution Width 20.2 % (11.5-14.5); White Blood Count 13.2 K/mcL (4.3-11.1)
[2020-07-26 02:20] LABS: BUN/Creatinine Ratio 24 (6-26); Blood Urea Nitrogen 26 mg/dL (8-23); Calcium 9.4 mg/dL (8.6-10.3); Carbon Dioxide 33 mEq/L (23-29); Chloride 92 mEq/L (98-107); Glucose 138 mg/dL (70-105); Osmolality,Calculated 285 (280-300); Potassium 3.9 mEq/L (3.5-5.1); Sodium 134 mEq/L (136-145); eGFR For African Americans > 60 (> 60); eGFR For Non-African Americans > 60 (> 60)
[2020-07-26] MEDS: Ipratropium/Albuterol Neb 3 ML IH SCH ×4 (03:56→22:01)
[2020-07-26] MEDS: Cholecalciferol (D-3) 1,000 UNIT (25MCG) TABLET PO SCH (09:28)
[2020-07-26] MEDS: Finasteride 5 MG TABLET PO SCH (09:29)
[2020-07-26] MEDS: Lactulose Oral Soln 20 GM/30 ML UDC PO SCH ×3 (09:29→20:08)
[2020-07-26] MEDS: Apixaban 5 MG TABLET PO SCH ×2 (09:29→20:08)
[2020-07-26] MEDS: Spironolactone 25 MG TABLET PO SCH (09:29)
[2020-07-26] MEDS: DilTIAZem CD (24hr) 180 MG CAP.ER.24H PO SCH (09:29)
[2020-07-26] MEDS: predniSONE 20 MG TABLET PO SCH (09:29)
[2020-07-26] MEDS: Metoprolol XL (24 HR) Succ 50 MG TAB.ER.24H PO SCH (09:29)
[2020-07-26] MEDS: Insulin LISPRO 300 UNITS/3 ML VIAL SUBQ SCH ×4 (09:30→20:27)
[2020-07-26] MEDS: Furosemide 40 MG/4 ML VIAL IVP SCH (09:30)
[2020-07-26] MEDS: BuPROPion XL (24 HR) 150 MG TABLET PO SCH (09:51)
[2020-07-26] MEDS: Torsemide 20 MG TABLET PO SCH (17:01)
[2020-07-26] MEDS: Melatonin 3 MG TABLET PO SCH (20:08)
[2020-07-26] MEDS: OLANZapine 10 MG TAB.RAPDIS PO SCH (20:09)
[2020-07-27 03:21] LABS: Hemoglobin 11.1 g/dL (12.9-16.9); Mean Corpuscular Volume 73.3 fL (83.0-100.0); Mean Platelet Volume 10.3 fL (9.4-12.4); Platelet Count 333 K/mcL (140-400); Red Blood Count 5.05 M/mcL (4.19-5.50); Red Cell Distribution Width 20.4 % (11.5-14.5); White Blood Count 15.2 K/mcL (4.3-11.1)
[2020-07-27 03:44] LABS: BUN/Creatinine Ratio 29 (6-26); Blood Urea Nitrogen 40 mg/dL (8-23); Carbon Dioxide 33 mEq/L (23-29); Chloride 91 mEq/L (98-107); Glucose 114 mg/dL (70-105); Osmolality,Calculated 289 (280-300); Potassium 3.8 mEq/L (3.5-5.1); Sodium 134 mEq/L (136-145); eGFR For African Americans > 60 (> 60); eGFR For Non-African Americans 51 (> 60)
[2020-07-27] MEDS: Ipratropium/Albuterol Neb 3 ML IH SCH ×2 (03:55→10:38)
[2020-07-27] MEDS: Torsemide 20 MG TABLET PO SCH (09:08)
[2020-07-27] MEDS: Finasteride 5 MG TABLET PO SCH (09:10)
[2020-07-27] MEDS: Metoprolol XL (24 HR) Succ 50 MG TAB.ER.24H PO SCH (09:14)
[2020-07-27] MEDS: BuPROPion XL (24 HR) 150 MG TABLET PO SCH (09:14)
[2020-07-27] MEDS: Apixaban 5 MG TABLET PO SCH (09:14)
[2020-07-27] MEDS: DilTIAZem CD (24hr) 180 MG CAP.ER.24H PO SCH (09:14)
[2020-07-27] MEDS: Cholecalciferol (D-3) 1,000 UNIT (25MCG) TABLET PO SCH (09:15)
[2020-07-27] MEDS: Lactulose Oral Soln 20 GM/30 ML UDC PO SCH (09:15)
[2020-07-27] MEDS: Insulin LISPRO 300 UNITS/3 ML VIAL SUBQ SCH (09:30)
[2020-07-27 11:26] VITALS: BP 97/60
[2020-07-27 12:11] LABS: Influenza A PCR Negative (Negative); Influenza B PCR Negative (Negative); Resp. Syncytial Virus PCR Negative (Negative); SARS-CoV-2 by PCR (In House) Negative (Negative)
== END 2020-07-27 14:37 | DRG 291 ==
LOC: EMEROOARM 06:51 → CDU 06:51 → SUATTDRO 10:28 → 3ANU 16:12
PROVIDERS: ADMIT Internal Medicine; ATTEND Internal Medicine